=== PATIENT | female | born 1970 | race Caucasian/White ===

== ENCOUNTER 2017-02-24 14:43 | Emergency (ER) | payer BC ==
[2017-02-24] MEDS ORDERED: Morphine INJ* 4 MG/ML 1 ML SYRINGE IM ONE (15:15)
[2017-02-24 15:17] VITALS: BP 134/84
--- NOTE | 2017-02-24 15:39 | UC ---
Lower Extremity/Ankle HPI - HPI Summary HPI Summary: Pt c/o right lower anterior lateral ankle and foot pain. Pt denies injury or trauma, recent travel or history of clotting disorder. pt does report that she was walking 2 days prior for 6 hours 3 of which she was wearing flip flops and 3 with sneakers. pt states that pain radiates to right foot. - History of Current Complaint Chief Complaint: UCLowerExtremity Stated Complaint: RIGHT LEG PAIN Time Seen by Provider: 02/24/17 14:45 Hx Obtained From: Patient Hx Last Menstrual Period: 2006 ?: No Onset/Duration: Sudden Onset, Lasting Days, Still Present, Worse Since - onset Severity Initially: Mild Severity Currently: Mild Aggravating Factor(s): Standing, Ambulation Alleviating Factor(s): Rest Able to Bear Weight: Yes - Risk Factors Gout Risk Factors: Age Over 40 DVT Risk Factors: Negative Septic Arthritis Risk Factor: Negative - Allergies/Home Medications Allergies/Adverse Reactions: Allergies Allergy/AdvReac Type Severity Reaction Status Date / Time CI Pigment Blue 63 Allergy Severe PSUDEO Verified 02/24/17 15:17 [From Cymbalta] SEIZURES Duloxetine [From Cymbalta] Allergy Severe PSUDEO Verified 02/24/17 15:17 SEIZURES Gabapentin Allergy Severe SYNCOPE Verified 02/24/17 15:17 Pregabalin [From Lyrica] Allergy Severe See Comment Verified 02/24/17 15:17 PMH/Surg Hx/FS Hx/Imm Hx Previously Healthy: Yes Cardiovascular History: Cardiac Disease - Surgical History Surgical History: Yes Surgery Procedure, Year, and Place: 1988 93 96 3 C SECTIONS [facility]. 2006 HYSTERECTOMY [employer]. [address] [facility] [place] EXPLORATORY ABDOMINAL LAPAROSOPIC,. 04/14/13- REMOV[place] PLATE LEFT ARM, [facility] [place] 2009 FUSION C 4 -5 5-6 [facility] [place]2012 LEFT UL[place] SH[place] WITH ORIF, [facility] [place] [address] [facility] [place] BUNIONECTOMY-RIGHT 1ST [facility] - Family History Known Family History: Positive: Hypertension - Social History Occupation: Employed Full-time Lives: With Family Alcohol Use: Rare Substance Use Type: None Smoking Status (MU): Never Smoked Tobacco Have You Smoked in the Last Year: No - Immunization History Most Recent Influenza Vaccination: 2012 Review of Systems Constitutional: Negative Skin: Negative Eyes: Negative ENT: Negative Respiratory: Negative Cardiovascular: Negative Gastrointestinal: Negative Genitourinary: Negative Motor: Decreased ROM Neurovascular: Negative Musculoskeletal: Myalgia - right lower extremity Neurological: Negative Psychological: Negative All Other Systems Reviewed And Are Negative: Yes Physical Exam Triage Information Reviewed: Yes Appearance: Well-Appearing Vital Signs: Initial Vital Signs Temp 99.9 F 02/24/17 15:08 Pulse 78 02/24/17 15:08 Resp 16 02/24/17 15:08 BP 134/84 02/24/17 15:08 Pulse Ox 99 02/24/17 15:08 Vital Signs Reviewed: Yes Eye Exam: Normal ENT Exam: Normal Neck exam: Normal Respiratory Exam: Normal Cardiovascular Exam: Normal Cardiovascular: Positive: Other: - positive pedal pulses, Musculoskeletal Exam: Other Musculoskeletal: Positive: Other: - tenderness right medial lower ankle. Neurological Exam: Normal Psychological Exam: Normal Skin Exam: Normal, Other - warm, brisk capillary refill, no red streaking, no edema Lower Extremity Course/Dx - Differential Dx/Diagnosis Differential Diagnosis/HQI/PQRI: DVT, Tendonitis Provider Diagnoses: tendonitis right lower extremity Discharge - Discharge Plan Condition: Stable Disposition: HOME Patient Education Materials: Tendinitis (ED), RICE Therapy (ED) Referrals: Igor Lombardo MD [Primary Care Provider] - If Needed (Please followup with your PCP or return to clinic as needed. ) Additional Instructions: Please follow up with your PCP or return to clinic as needed. If your symptoms worsen please seek care as soon as possible.
== END 2017-02-24 15:47 | disposition home or self-care (01) ==
LOC: UCCORT 14:43
DX: M65.061 Abscess of tendon sheath, right lower leg (principal)
CPT/HCPCS: 99211; G0463; J2270

== ENCOUNTER 2017-07-08 14:47 | Emergency (ER) | payer BC ==
--- OUTSIDE RECORDS SUMMARY | 2017-07-08 15:05 | XMS REPORT ---
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 Active Onset: 02/28/2014 Chest pain Igor Lombardo M.D. Active Onset: 03/12/2013 Headache Igor Lombardo M.D. Active Onset: 09/18/2012 Benign essential hypertension Igor Lombardo M.D. Active Onset: 06/22/2012 Disorder of lip Igor Lombardo M.D. Active Onset: 12/03/2011 Hand joint pain Igor Lombardo M.D. Active Onset: 09/21/2011 Arthropathy of joint of hand Igor Lombardo M.D. Active Onset: 09/16/2011 Edema Igor Lombardo M.D. Active Onset: 09/04/2011 Myalgia & Myositis Unspec Igor Lombardo M.D. Active Onset: 09/04/2011 Chronic pain syndrome Igor Lombardo M.D. Active Family History Date Family Member(s) Problem(s) Comments General Diabetes Mellitus, II father, and PGM. Father Diabetes, age 62 CVA Mother Lung CA, ex-smoker. Number of Children 3 children, 2 girls, one boy, all in good health. 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 Allergies, Adverse Reactions, Alerts Date Description Reaction Status Severity Comments 09/16/2011 Cymbalta active pseudo seizures 09/16/2011 Lyrica active pseudo seizures 05/28/2010 Nkma inactive 09/04/2011 NKDA inactive Medications Medication Date Status Form Strength Qnty SIG Indications Ordering Provider Prednisone 07/03/ Active Tablets 20mg 8tabs take 2 by J20.9 Yazmin C. 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 may take 2 as one dose at bedtime. Ventolin HFA 07/03/ Active Aerosol 108(90Bas 18gm take 1-2 J20.9 Yazmin CShanika 2018 e) puffs inhaled Abhi, mcg/Act every 4 hours GOGGLES ASSEMBLER as needed for wheezing or tightness in the chest Benzonatate 07/03/ Active Capsules 200mg 30cap take one by J20.9 Yazmin C. 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 2014 Fluoxetine HCL 05/07/ Hx Capsules 10mg 60cap 1 by mouth Igor Smith 2012 - s twice a day Grupo, MShanikaD. 2016 Elavil 03/12/ Hx 10 30uni use qhs Igor Smith 2012 - ts Grupo, M.D. 2013 Vicodin 03/12/ Hx Tablets 5-300mg 50tab 1 po q4hrs Igor Smith 2012 - s prn dt call Grupo, M.D. 2013 Back Brace 02/15/ Hx needs new Igor Smith 2012 - back brace Grupo, 11/10/ M.DShanika 2014 fibromyalgia ne Doxycycline 06/22/ Hx Capsules 100mg 16cap use 1bid Igor Smith Hyclate 2011 Grupo, M.D. 2012 Triamterene/Hy 04/17/ Hx Capsules 37.5-25mg 30cap take one Igor Smith drochlorothiaz 2011 capsule by nia Lombardo 07/03/ mouth every M.D. 2018 day Prednisone 04/06/ Hx Tablets 20mg 18tab 3 x 3 days Igor Smith 2011 s 2 x 3 days 1 Grupo, 09/18/ x 3 days M.D. 2013 Physical 04/03/ Hx needs PT to [facility] 2012 - her hand Grupo, M.D. 2013 Prednisone 12/25/ Hx Tablets 5mg 9tabs 2 tabs x 3 Lupe 2011 - , then 1 Elijah, 04/03/ tabs x 3 Afnp-C 2011 days, Prednisone 11/21/ Hx Tablets 5mg 9tabs 2 tabs x 3 Lupe 2011 - , then 1 Elijah, 12/02/ tabs x 3 Afnp-C 2011 days, Dyazide 09/15/ Hx Capsules 37.5-25mg 30cap Take One A Lupe 2011 Day Elijah, 09/18/ Afnp-C 2012 Ambien 09/03/ Hx Tablets 10mg 30tab 1 po q hs prn Igor Smith 2011 Gabrielle s Grupo, 09/15/ MGary 2011 Miralax 06/25/ Hx Powder [id number] 510gm 06/24 teaspoon 564.09 Addis JavierShanika 2010 - in 8 oz water Thanh, 09/03/ at night. MGary 2011 Lansoprazole // Hx Capsules 30mg 1 po qd Unknown 0000 - DR 2011 Estropipate 00/ Hx Tablets 1.5mg 30tab 1 PO qd Mily Bolanos 0000 - s [place] 05/15/ , Manuela 2014 Docusate / Hx Capsules 240mg 1 PO bid Unknown Calcium - 2011 Limbrel / Hx Capsules 500mg 1 po bid Unknown 0000 - 2011 Hyomax-SR / Hx Tablets ER 0.375mg 1 PO bid Unknown 0000 - 12HR 2011 Vicodin / Hx Tablets 5-500mg 1 to 2 po Unknown 0000 - every six 09/03/ hours prn. 2011 Omeprazole 00/ Hx Tablets DR 20mg 30tab 1 by mouth Igor farris every day Grupo 10/10/ MGary 2016 [place] 3-6-9 /00/ Hx Capsules Unknown Complex - 2011 Librax 00/ Hx Capsules 2.5-5mg 120ca take 1 Unknown 0000 - ps capsule 3-4 09/18/ times a day 2012 as needed Fluoxetine / Hx Capsules 10mg 60cap 1 po bid Igor Smith 0000 Gabrielle s Grupo, 05/16/ MGary 2014 Prednisone /00/ Hx Tablets 60mg 4tabs 1 po qd x 4 Unknown 0000 - days 2011 Cipro /00/ Hx Tablets 500mg 1 po bid x 10 Unknown 0000 - days 2011 Linzess /00/ Hx Capsules 145mcg Unknown - 2016 Probiotic /00/ Hx Capsules Unknown 0000 - 2012 Premarin /00/ Hx Tablets 1 by mouth Unknown 0000 - every day 2016 Medications Administered in Office Medication Date Status Form Strength Qnty SIG Indications Ordering Provider Injection 09/20/ Injection Igor Smith Subcutaneous Or Roby James M.D. Immunizations CPT Code Status Date Vaccine Lot # [id number] Given 05/15/2015 Tdap Tetanus, W Pertussis [id number] Vital Signs Date Vital Result Comment 07/03/2017 BP Systolic 132 mmHg BP Diastolic 86 mmHg Heart Rate 84 /min Body Temperature 98.1 F Respiratory Rate 16 /min Weight 181.25 lb 02/21/2017 BP Systolic 124 mmHg BP Diastolic 80 mmHg Heart Rate 72 /min Body Temperature 99.0 F Respiratory Rate 16 /min Weight 176.38 lb 05/15/2015 BP Systolic 128 mmHg BP Diastolic 80 mmHg Heart Rate 72 /min Body Temperature 99.2 F Respiratory Rate 16 /min Weight 168.25 lb 11/10/2014 BP Systolic 148 mmHg BP Diastolic 90 mmHg Heart Rate 80 /min Body Temperature 99.0 F Height 63.25 inches 5'3.25" 02/28/2014 BP Systolic 122 mmHg BP Diastolic 80 mmHg Heart Rate 70 /min Body Temperature 98.8 F Respiratory Rate 18 /min Height 63.25 inches 5'3.25" Weight 176.00 lb BMI (Body Mass Index) 30.9 kg/m2 08/20/2013 BP Systolic 140 mmHg BP Diastolic 84 mmHg Heart Rate 66 /min Body Temperature 99.1 F Respiratory Rate 18 /min Height 63.25 inches 5'3.25" Weight 170.00 lb BMI (Body Mass Index) 29.9 kg/m2 03/12/2013 BP Systolic 144 mmHg BP Diastolic 106 mmHg Heart Rate 84 /min Body Temperature 98.7 F Respiratory Rate 16 /min Height 63.25 inches 5'3.25" Weight 163.50 lb BMI (Body Mass Index) 28.7 kg/m2 12/28/2012 BP Systolic 122 mmHg BP Diastolic 68 mmHg Heart Rate 80 /min Body Temperature 97.4 F Respiratory Rate 18 /min Height 63.25 inches 5'3.25" Weight 162.00 lb BMI (Body Mass Index) 28.5 kg/m2 09/18/2012 BP Systolic 128 mmHg BP Diastolic 82 mmHg Heart Rate 88 /min Body Temperature 98.3 F Respiratory Rate 16 /min Height 63.25 inches 5'3.25" Weight 158.00 lb BMI (Body Mass Index) 27.8 kg/m2 06/22/2012 BP Systolic 110 mmHg BP Diastolic 80 mmHg Heart Rate 88 /min Body Temperature 98.9 F Height 63.5 inches 5'3.50" Weight 158.00 lb BMI (Body Mass Index) 27.5 kg/m2 04/03/2012 BP Systolic 110 mmHg BP Diastolic 90 mmHg Heart Rate 70 /min Body Temperature 99.1 F Height 63.5 inches 5'3.50" Weight 156.00 lb BMI (Body Mass Index) 27.2 kg/m2 12/03/2011 BP Systolic 102 mmHg BP Diastolic 70 mmHg Heart Rate 68 /min Height 63.5 inches 5'3.50" Weight 151.00 lb BMI (Body Mass Index) 26.3 kg/m2 11/22/2011 BP Systolic 122 mmHg BP Diastolic 82 mmHg Heart Rate 78 /min Body Temperature 98.4 F Height 63.5 inches 5'3.50" Weight 150.00 lb BMI (Body Mass Index) 26.2 kg/m2 11/19/2011 BP Systolic 138 mmHg BP Diastolic 94 mmHg Heart Rate 66 /min Height 63.5 inches 5'3.50" Weight 150.00 lb BMI (Body Mass Index) 26.2 kg/m2 10/01/2011 BP Systolic 128 mmHg BP Diastolic 92 mmHg Heart Rate 72 /min Body Temperature 98.6 F Height 63.5 inches 5'3.50" Weight 152.00 lb BMI (Body Mass Index) 26.5 kg/m2 09/21/2011 BP Systolic 140 mmHg BP Diastolic 98 mmHg Heart Rate 66 /min Body Temperature 97.5 F Height 63.5 inches 5'3.50" Weight 150.00 lb BMI (Body Mass Index) 26.2 kg/m2 09/16/2011 BP Systolic 130 mmHg BP Diastolic 92 mmHg Heart Rate 72 /min Body Temperature 98.9 F Height 63.5 inches 5'3.50" Weight 156.00 lb BMI (Body Mass Index) 27.2 kg/m2 09/04/2011 BP Systolic 122 mmHg BP Diastolic 80 mmHg Heart Rate 72 /min Respiratory Rate 14 /min Height 63.5 inches 5'3.50" Weight 145.00 lb BMI (Body Mass Index) 25.3 kg/m2 06/25/2010 BP Systolic 100 mmHg BP Diastolic 80 mmHg Heart Rate 76 /min Body Temperature 99.4 F Height 63.5 inches 5'3.50" Weight 161.00 lb BMI (Body Mass Index) 28.1 kg/m2 05/28/2010 BP Systolic 120 mmHg BP Diastolic 88 mmHg Heart Rate 80 /min Body Temperature 99.0 F Height 63.5 inches 5'3.50" Weight 162.00 lb BMI (Body Mass Index) 28.2 kg/m2 Results Test Date Test Result H/L Range Note Complete Blood Count 02/21/2017 WBC 5.9 x10^3/UL 3.6-9.6 RBC 4.83 x10^6/UL 3.90-5.70 HGB 14.2 g/dL 12.1-17.2 HCT 42 % 36-50 MCV 88.0 fL 82.2-97.4 MCH 29.4 pg 27.6-33.3 MCHC 33.6 g/dL 33.0-35.5 RDW 13.8 % High 11.6-13.7 PLT 385 x10^3/UL 150-400 MPV 6.8 fL Low 7.4-10.4 Gran # 3.9 x10^3/UL 1.5-7.2 Lymph# 1.7 x10^3/UL 0.7-4.9 [place]# 0.3 x10^3/UL 0.1-0.9 Gran % 65.6 % 42.2-75.2 Lymph % 28.9 % 20.5-51.1 [place]% 5.5 % 1.7-9.3 Comprehensive Metabolic Prof 02/21/2017 Sodium 142 mEq/L 134-149 Potassium 4.5 mEq/L 3.6-5.5 Chloride 102 mEq/L 94-112 Carbon Dioxide 26 mEq/L 21-32 Glucose 98 mg/dL 70-105 BUN 13 mg/dL 6-26 Creatinine 0.8 mg/dL 0.6-1.4 BUN/Creat Ratio 16.3 CALC 8.0-36.0 Calcium 9.3 mg/dL 8.6-10.2 Total Protein 7.8 g/dL 6.4-8.3 Albumin 4.8 g/dL 3.8-5.5 Globulin 3.0 g/dL 2.0-4.8 A/G Ratio 1.6 CALC 0.6-2.3 Alk. Phosphatase 82 U/L 30-110 Alt (SGPT) 13 U/L 7-35 Ast (Sgot) 15 U/L 5-34 Total Bilirubin 0.7 mg/dL 0.2-1.3 GFR Non- >60 ml/min/1.73m^ >=60 GFR >60 ml/min/1.73m^ >=60 Laboratory test finding 02/21/2017 Free T4 0.92 ng/dL 0.75-1.54 TSH 2.93 mIU/L 0.50-6.00 Laboratory test finding 02/21/2017 Hemoglobin A1c (Fma) 5.7 % % 4.1-5.7 Lyme AB/Western Blot 02/21/2017 Lyme IgG/IgM Ab <0.91 ISR 0.00-0.90 1 , 2 Reflex Lyme Disease Ab, Quant, IgM <0.80 index 0.00-0.79 1, 3 Laboratory test finding 04/26/2016 Lyme Disease Serology Negative Negative 4 Comprehensive Metabolic Prof 05/19/2015 Sodium 142 mEq/L 134-149 Potassium 4.7 mEq/L 3.6-5.5 Chloride 102 mEq/L 94-112 Carbon Dioxide 27 mEq/L 21-32 Glucose 121 mg/dL High 70-105 5 BUN 16 mg/dL 6-26 Creatinine 0.8 mg/dL 0.6-1.4 BUN/Creat Ratio 20.0 CALC 8.0-36.0 Calcium 10.5 mg/dL High 8.6-10.2 6 Total Protein 8.0 g/dL 6.4-8.3 Albumin 4.9 g/dL 3.8-5.5 Globulin 3.1 g/dL 2.0-4.8 A/G Ratio 1.6 CALC 0.6-2.3 Alk. Phosphatase 70 U/L 30-110 Alt (SGPT) 11 U/L 7-35 Ast (Sgot) 16 U/L 5-34 Total Bilirubin 0.8 mg/dL 0.2-1.3 GFR Non- >60 ml/min/1.73m^ >=60 GFR >60 ml/min/1.73m^ >=60 CBC Electronic (a) 05/19/2015 WBC 5.9 3.6-9.6 RBC 4.75 3.90-5.70 Hemoglobin (Fma/CMC/CTX) 13.8 g/dL 12.1 - 17.2 Hematocrit (Fma/CMC/CTX) 43.1 % 36.1 - 50.3 Platelets 327 10^3/ul 150-400 Lymph% 29.5 % 17.0-48.0 Mixed% 3.1 Neutrophils % 67.4 Mean Corpuscular Vol 91 82.2-97.4 Mean Corpuscular Hemoglobin 29.2 27.6-33.3 Mean Corpuscular Hemo Concen 32.1 32.0-36.0 RDW 13.4 11.6-13.7 Mean Platelet Volume 6.6 5.5-11.0 Ua - Micro ([facility]) 11/10/2014 Appearance CLEAR Color YELLOW Glucose, Urine (Fma/CMC/CTX) NEG Bilirubin NEG Ketones NEG SP Grav 1.005 Blood SMALL PH 5.5 Protein NEG Urobil 0.2 Nitrite NEG Leukocytes (a/CMC/Centrex) NEG WBC ([facility],Centrex) 0-1 RBC 5-7 Epith RARE /Lpf Bacteria 1+ /Hpf Throat-Beta Strept 08/09/2014 Throat Beta Strep (SEE NOTE) 7 Culture PTH Intact W/Calcim (CX) 03/04/2014 Calcium 10.8 mg/dL High 8.4-10.4 8 Intact PTH 38.8 pg/mL 10.0-73.0 8 Calcium 10.8 mg/dL High 8.4-10.4 8 CBC Electronic ([facility]) 02/28/2014 WBC 8.5 3.6-9.6 RBC 5.13 3.90-5.70 Hemoglobin (Fma/CMC/CTX) 15.1 g/dL 12.1 - 17.2 Hematocrit (Fma/CMC/CTX) 44.7 % 36.1 - 50.3 Platelets 329 10^3/ul 150-400 Lymph% 23.3 % 17.0-48.0 Mixed% 4.4 Neutrophils % 72.3 Mean Corpuscular Vol 87 82.2-97.4 Mean Corpuscular Hemoglobin 29.5 27.6-33.3 Mean Corpuscular Hemo Concen 33.9 32.0-36.0 RDW 13.8 High 11.6-13.7 Mean Platelet Volume 6.9 5.5-11.0 Comprehensive Metabolic Prof 02/28/2014 Sodium 142 mEq/L 134-149 Potassium 4.2 mEq/L 3.6-5.5 Chloride 98 mEq/L 94-112 Carbon Dioxide 26 mEq/L 21-32 Glucose 102 mg/dL 70-105 BUN 22 mg/dL 6-26 Creatinine 1.0 mg/dL 0.6-1.4 BUN/Creat Ratio 22.0 CALC 8.0-36.0 Calcium 10.5 mg/dL High 8.6-10.2 9 Total Protein 9.1 g/dL High 6.3-8.1 10 Albumin 5.2 g/dL 3.8-5.5 Globulin 4.8 g/dL 2.0-4.8 A/G Ratio 1.3 CALC 0.6-2.3 Alk. Phosphatase 94 U/L 30-110 Alt (SGPT) 18 U/L 7-35 Ast (Sgot) 26 U/L 5-34 Total Bilirubin 0.7 mg/dL 0.2-1.3 Laboratory test 02/28/2014 Sed Rate (Fma/CMC/Centrex) 10 mm finding Laboratory test 02/28/2014 TSH 2.04 mIU/L 0.50-6.00 finding Surgical Pathology 10/21/2013 S RUN DATE: 10/25/ <SEE NOTE> CBC Electronic (a) 12/28/2012 WBC 5.8 3.6-9.6 RBC 4.92 3.90-5.70 Hemoglobin (Fma/CMC/CTX) 13.9 g/dL 12.1 - 17.2 Hematocrit (Fma/CMC/CTX) 42.9 % 36.1 - 50.3 Platelets 367 10^3/ul 150-400 Lymph% 27.8 20.5-51.1 Mixed% 4.0 Neutrophils % 68.2 Mean Corpuscular Vol 87 82.2-97.4 Mean Corpuscular Hemoglobin 28.3 27.6-33.3 Mean Corpuscular Hemo Concen 32.4 32.0-36.0 RDW 11.8 11.6-13.7 Mean Platelet Volume 7.1 6.5-11.0 Comprehensive Metabolic Prof 12/28/2012 Albumin 5.0 g/dL 3.8-5.5 Alk. Phos. 74 U/L 30-110 Alt (SGPT) 14 U/L 7-35 Ast (Sgot) 21 U/L 5-34 BUN 20 mg/dL 6-26 Calcium 10.7 mg/dL High 8.6-10.2 12 Chloride 100 mEq/L 94-112 Creatinine 0.9 mg/dL 0.6-1.4 Carbon Dioxide 24 mEq/L 21-32 Glucose 95 mg/dL 70-105 Sodium 138 mEq/L 134-149 Total Bilirubin 0.6 mg/dL 0.2-1.3 Total Protein 8.0 g/dL 6.3-8.1 Potassium 4.8 mEq/L 3.6-5.5 Globulin 3.0 g/dL 2.0-4.8 A/G Ratio 1.7 Calc 0.6-2.3 BUN/Creat Ratio 21.1 Calc 8.0-36.0 Laboratory test finding 12/28/2012 TSH 1.99 mIU/L 0.50-6.00 Lipid Profile 12/28/2012 Cholesterol 270 mg/dL High 120-200 13 HDL 67 mg/dL 30-85 Triglycerides 152 mg/dL 30-200 HDL Risk Factor 4.0 CALC 0.0-4.4 LDL (Calculated) 172 CALC High 0-129 VLDL (Calculated) 30 mg/dL 0-50 CBC Auto Diff 12/19/2011 White Blood Count 7.1 CUMM 4.8-10.8 Red Cell Count 4.50 CUMM 4.2-5.4 Hemoglobin 13.4 g/dL 12.0-16.0 Hematocrit 39 % 35-47 Mean Corpuscular Volume 86 um3 79-97 Mean Corpuscular Hemoglob 30 pg 27-31 Mean Corpuscular HGB Cone 35 g/dL 32-36 Redcell Distribution WDTH 13 % 10.5-15 Platelet Count 304 CUMM 150-450 Mean Platelet Volume 8.6 um3 7.4-10.4 Gran % 68.8 % 38-83 Lymph % 22.2 % Low 25-47 Mononuclear % 6.0 % 1-9 Eosinophil % 2.6 % 0-6 Basophil % 0.4 % 0-2 Abs Lymphs 1.6 1.0-4.8 Abs Mononuclear 0.4 0-0.8 Absolute Neutrophil Count 4.9 1.5-7.7 Abs Eosinophils 0.2 0-0.6 Abs Basophils 0 0-0.2 Comp Metabolic Panel 12/19/2011 Sodium 135 mmol/L 135-145 Potassium 3.7 mmol/L 3.5-5.0 Chloride 103 mmol/L 101-111 Co2 (Carbon Dioxide) 26.0 mmol/L 22-32 Anion Gap 6.0 mmol/L 2-11 14 Glucose 104 mg/dL High 70-100 BUN 16 mg/dL 6-24 Creatinine 0.8 mg/dL 0.50-1.40 One Over Creatinine 1.25 BUN/Creatinine Ratio 20.0 8-20 Calcium 9.6 mg/dL 8.1-9.9 Total Protein 6.9 GM/DL 6.2-8.1 Albumin 4.3 GM/DL 3.6-5.4 Globulin 2.6 GM/DL 2-4 Albumin/Globulin Ratio 1.7 1-3 Bilirubin Total 0.8 mg/dL 0.4-1.5 15 Alkaline Phosphatase 65 U/L 30-110 Alt (SGPT) 13 U/L Low 14-54 Ast (Sgot) 21 U/L 12-42 eGFR Non- 79.0 > 60 eGFR 101.7 > 60 16 Laboratory test finding 12/19/2011 Prealbumin 26.7 mg/dL 18-38 C Reactive Protein 1.4 mg/dL High Less Than 0.5 Hemoglobin A1c 5.8 % Less Than 6.0 17 Vitamin D, 25 Hydroxy 12/19/2011 25-Hydroxy Vitamin D2 <4.0 ng/mL () 25-Hydroxy Vitamin D3 36 ng/mL () 25-Hydroxy Vitamin D Total 36 ng/mL () 18 Laboratory test 12/19/2011 Tissue Culture <SEE 19 finding Sensitivity NOTE> Fungal Cult Other Sources <SEE NOTE> 20 Laboratory test finding 11/22/2011 Uric Acid 4.5 mg/dL 2.5-9.2 Laboratory test finding 11/22/2011 Sed Rate (Fma/CMC/Centrex) 16 mm Basic Metabolic Profile 09/16/2011 BUN 25 mg/dL 6-26 Calcium 8.9 mg/dL 8.6-10.2 Chloride 101 mEq/L 94-112 Creatinine 0.8 mg/dL 0.6-1.4 Carbon Dioxide 28 mEq/L 21-32 Glucose 105 mg/dL 70-105 Sodium 139 mEq/L 134-149 Potassium 4.0 mEq/L 3.6-5.5 BUN/Creat Ratio 31.5 Calc 8.0-36.0 Laboratory test finding 09/16/2011 Antinuclear Abs, Ifa Negative 21 Rheumatoid Arth Factor 10.3 IU/mL 0.0-13.9 Laboratory test finding 09/16/2011 Sed Rate (Fma/CMC/Centrex) 16mm Comp Metabolic Panel 05/24/2010 Sodium 137 mmol/L 135-145 Potassium 4.2 mmol/L 3.5-5.0 Chloride 103 mmol/L 101-111 Co2 (Carbon Dioxide) 27.0 mmol/L 22-32 Anion Gap 7.0 mmol/L 2-11 22 Glucose 95 mg/dL 70-100 23 BUN 15 mg/dL 6-24 Creatinine 0.77 mg/dL 0.50-1.40 One Over Creatinine 1.20 BUN/Creatinine Ratio 19.5 8-20 Calcium 9.8 mg/dL 8.1-9.9 Total Protein 7.7 GM/DL 6.2-8.1 Albumin 4.4 GM/DL 3.6-5.4 Globulin 3.3 GM/DL 2-4 Albumin/Globulin Ratio 1.3 1-3 Bilirubin Total 0.8 mg/dL 0.4-1.5 24 Alkaline Phosphatase 72 U/L 30-110 Alt (SGPT) 13 U/L Low 14-54 Ast (Sgot) 20 U/L 12-42 eGFR Non- 88.7 > 60 eGFR 107.3 > 60 25 Urinalysis W/Microscopic 05/24/2010 Ua Color YELLOW Yellow Appearance-Urine CLEAR Clear Specific [place]-Ur 1.012 1.010-1.030 Esterase-Urine NEGATIVE Negative Nitrite NEGATIVE Negative Vtcquyncevhu-Gp-GEJ NEGATIVE Negative Protein-Urine NEGATIVE Negative PH-Urine 7.0 5-9 Blood-Urine 1+ Negative Ketones-Urine NEGATIVE Negative Bilirubin-Ur NEGATIVE Negative Glucose-Urine NEGATIVE Negative RBC-Urine 5-10 0-2 Epith Cells-Ur RARE None Bacteria-Urine TRACE None Laboratory test finding 05/24/2010 Erythrocyte Sed Rate 8 MM/HR 0-15 Creatinine Clearance 05/24/2010 Creatinine Random Urine 141.22 mg/dL Creat Clearance 92 mL/min 80-125 Hours Of Collection 24 HR 24- Urine Volume Measurement 725 ML Total Protein 24HR Urine 05/24/2010 Total Protein Random Urine 5 mg/dL Urine Total Protein/24HR 36 MG/24HR Low 50-100 1 1SST 2 Negative <0.91 Equivocal 0.91 - 1.09 Positive >1.09 3 Negative <0.80 Equivocal 0.80 - 1.19 Positive >1.19 IgM levels may peak at 3-6 weeks post infection, then gradually decline. 4 Serologic response to B. burgdorferi infection is not detected, but cannot rule out early infection during which low or undetectable antibody levels to B. burgdorferi may be present. If clinically indicated, a new serum specimen should be submitted in 7-14 days. Test Performed by: [address] [address] [place] Pilot: Aubrey De La Cruz II, M.D., Ph.D. 5 NON-FASTING 6 consistent w/ previous results 7 RUN DATE: 08/11/14 [facility] LAB LIVE PAGE 1 RUN TIME: [address] [place] [id number] Specimen Inquiry Name: NIDIA YORK : [address]: Chantell Lutz MD Acct: [id number] Unit: [id number] AGE: 43 Location: [facility] Re08/09/14 SEX: F Status: DEP ER SPEC: [id number] TENZIN: 08/09/14-[address] [facility] [address]: Jackie Guzman NP REQ: [id number] RECD: 08/09/14 STATUS: TOO BRONSON DR: Chantell Lombardo MD _ SOURCE: THROAT SPDESC: ORDERED: Throat Beta Str Procedure Result Verified Site Throat Beta Strep Culture Final 08/11/14- 825 ML Negative For Group A Beta Streptococcus END OF REPORT * ML=Testing performed at Main Lab DEPARTMENT OF PATHOLOGY, [address] [place] [address] Rodolfo Carpenter M.D. Director [facility] # [id number] 1 pour off tube refrig 9 RESULTS VERIFIED BY REPEAT ANALYSIS 10 RESULTS VERIFIED BY REPEAT ANALYSIS 11 RUN DATE: 10/25/13 [facility] LAB LIVE PAGE 1 RUN TIME: [address] [place] [address] Specimen Inquiry Name: NIDIA YORK : [address]: Lino Noyola MD Acct: [id number] Unit: [id number] AGE: 42 Location: [facility] Re10/21/13 SEX: F Status: [facility] SPEC: [id number] TENZIN: 10/21/13- SUBM DR: Lino Noyola MD REQ: [id number] RECD: 10/21/131629 STATUS: FANTASMA BRONSON DR: Rowan Lombardo MD _ ORDERED: LEVEL IV FINAL DIAGNOSIS Skin, left breast, excision: A. Compound melanocytic nevus with mild architectural disorder and mild cytologic atypia. B. Deep, tip, and lateral margins are clear by at least 3 mm. PRE-OPERATIVE DIAGNOSIS Irregular pigmented lesion left breast, suture twelve o'clock superior apex margin. GROSS DESCRIPTION The specimen is received in formalin labeled Nidia York, Excision Irregular Pigmented Skin Lesion Left Breast Suture=Twelve O'clock Superior Mcrae [place] Margin and consists of a 3.0 x 0.8 cm. danielle-cagle, wrinkled skin ellipse excised to a depth of 0.4 cm. There is a suture attached to one long axis which designates twelve o'clock. There is a central 0.8 x 0.5 cm. brown area. The specimen is inked as follows: nine o'clock half - black, three o'clock half - blue, and twelve o'clock tip green, serially sectioned from twelve o'clock to six o'clock and entirely submitted in cassettes A through C to include ellipse ends in cassette C. Signed (signature on file) Rodolfo Carpenter MD [id number] END OF REPORT * ML=Testing performed at Main Lab DEPARTMENT OF PATHOLOGY, [address] [place] [address] Rodolfo Carpenter M.D. Director [facility] Permit #[id number] RESULT KASSANDRA'D 13 RESULT KASSANDRA'D 14 Anion gap measurement may be of limited value in the presence of any alkalosis, especially in a combined acid base disorder. . 15 A metabolite of Naproxen, O-desmethylnaproxen, has been shown to interfere with the Jendrassik-Ambrose method for measuring total bilirubin. Samples from patients who have taken Naproxen have shown spurious elevation in total bilirubin levels. 16 Because ethnic data is not always readily available, this report includes an eGFR for both -Americans and non- Americans. The National Kidney Disease Education Program (NKDEP) does not endorse the use of the MDRD equation for patients that are not between the ages of 18 and 70, are , have extremes of body size, muscle mass, or nutritional status, or are non- or non-. According to the National Kidney Foundation, irrespective of diagnosis, the stage of the disease is based on the level of kidney function: Stage Description GFR(mL/min/1.73 m(2)) 1 Kidney damage with normal or decreased GFR 90 2 Kidney damage with mild decrease in GFR 60-89 3 Moderate decrease in GFR 30-59 4 Severe decrease in GFR 15-29 5 Kidney failure <15 (or dialysis) 17 THERAPEUTIC TARGET FOR THE TREATMENT OF DIABETES MELLITUS PATIENTS IS <7% HBA1C, AND IN SELECTIVE PATIENTS <6.0%. PLEASE REFER TO [employer] DIABETIC CARE GUIDELINES FOR FURTHER INFORMATION. 18 -- REFERENCE VALUE -- 25-HYDROXY D TOTAL (D2+D3) Optimum levels in the normal population are 25-80 Test Performed by: [address] [address] State Pilot: Julius Baumann III, M.D. 19 RUN DATE: 12/22/11 [facility] NMI LIVE PAGE 1 RUN TIME: 952 Specimen Inquiry RUN USER: INTERFACE [id number] Status: REG REF Re12/19/11 Age/Sex: 41/F Unit#: [id number] Location: [facility] : 70 SPEC #: [id number] TENZIN: 12/19/11 STATUS: TOO REQ #: [id number] RECD: 12/19/[address]: Brigette Arrington MD SOURCE: TISSUE ENTR: 12/19/[address]: Igor Lombardo MD SPDESC: HAND,LEFT ORDERED: TISSUE CS/SMEAR ACT WKST: B 12/22/11 #1 Procedure Result Verified Site > CULTURE SENSITIVITY Final -0952 ML NORMAL CUTANEOUS MARY LOU TO INCLUDE: FEW COAG NEG STAPHYLOCOCCUS - 2 VARIANTS FEW DIPHTHEROIDS ONE COLONY GRAM NEG BACILLI FEW MICROCOCCUS/KOCURIA SPECIES > GRAM STAIN SMEAR Final -0752 ML POLYS NONE SMEAR: NO ORGANISMS SEEN ML - [facility] State Permit #[id number] [address] [place] [address] DEPARTMENT OF PATHOLOGY, [address] [place] [address] [facility] Permit #[id number] Rodolfo Carpenter M.D. Director Dariel Goff M.D. Ent Physician 20 RUN DATE: 01/06/12 [facility] NMI LIVE PAGE 1 RUN TIME: 1507 Specimen Inquiry RUN USER: INTERFACE Name: NIDIA YORK Accbrian#: [id number] Status: REG REF Re12/19/11 Age/Sex: 41/F Unit#: [id number] Location: WOUND : 70 SPEC #: [id number] TENZIN: 12/19/11 STATUS: COMP REQ #: [id number] RECD: 12/19/11140 [facility] DR: Murphy RAMIREZ,Brigette SOURCE: WOUND ENTR: 12/19/11-[address]: Grupo RAMIREZ,[facility]: HAND,LEFT ORDERED: FUNGAL CULT [facility] COMMENTS: COMMENTS: tissue culture COMMENTS: fungal hand swab ACT WKST: CHANG 01/06/12 #1 Procedure Result Verified Site > FUNGAL CULT OTHER SOURCES Final -1507 ML FINAL: NO GROWTH OF MYCOTIC ORGANISMS AFTER 3 WEEKS - [facility] Permit #[id number] [address] [place] [address] DEPARTMENT OF PATHOLOGY, [address] [address] [facility] Permit #[id number] Rodolfo Carpenter M.D. Director Dariel Goff M.D. Ent Physician 21 Negative <1:80 Borderline 1:80 Positive >1:80 22 Anion gap measurement may be of limited value in the presence of any alkalosis, especially in a combined acid base disorder. . 23 Note change in reference range as of 02/11/08. The change was based on recommendations from the [place] [employer]. 24 A metabolite of Naproxen, O-desmethylnaproxen, has been shown to interfere with the Jendrassik-Ambrose method for measuring total bilirubin. Samples from patients who have taken Naproxen have shown spurious elevation in total bilirubin levels. 25 Because ethnic data is not always readily available, this report includes an eGFR for both -Americans and non- Americans. The National Kidney Disease Education Program (NKDEP) does not endorse the use of the MDRD equation for patients that are not between the ages of 18 and 70, are , have extremes of body size, muscle mass, or nutritional status, or are non- or non-. According to the National Kidney Foundation, irrespective of diagnosis, the stage of the disease is based on the level of kidney function: Stage Description GFR(mL/min/1.73 m(2)) 1 Kidney damage with normal or decreased GFR 90 2 Kidney damage with mild decrease in GFR 60-89 3 Moderate decrease in GFR 30-59 4 Severe decrease in GFR 15-29 5 Kidney failure <15 (or dialysis) Procedures Date CPT Code Description Status 05/15/2015 75013 Electrocardiogram Complete Completed 02/28/2014 75630 Electrocardiogram Complete Completed 09/21/2011 59377 Injection Subcutaneous Or Intramuscular Completed 09/21/2011 59605 Inject, Tendon Origin/Insertion Completed Encounters Type Date Location Provider CPT E/M Dx Office Visit 02/21/2017 9:10a Main Office Igor Lombardo M.D. 01834 R51 R53.83 R73.9 Office Visit 05/15/2015 6:00p Main Office Addis Law M.D. 28142 M20.11 Z01.818 Z23 Office Visit 11/10/2014 11:00a Main Office Igor Lombardo M.D. 92674 724.5 Office Visit 02/28/2014 2:10p Main Office Igor Lombardo M.D. 49984 786.50 780.4 Office Visit 08/20/2013 1:40p Main Office Igor Lombardo M.D. 36035 729.1 Office Visit 03/12/2013 2:00p Main Office Igor Lombardo M.D. 41357 784.0 Office Visit 12/28/2012 8:00a Main Office Igor Lombardo M.D. 31911 401.1 729.1 Office Visit 09/18/2012 11:00a Main Office Igor Lombardo M.D. 47104 401.1 Office Visit 06/22/2012 11:10a Main Office Igor Lombardo M.D. 09176 528.5 Office Visit 04/03/2012 2:00p Main Office Igor Lombardo M.D. 29142 719.44 Office Visit 12/03/2011 4:00p [facility] Igor Lombardo M.D. 76167 719.44 Office Visit 11/22/2011 11:30a [facility] Office Lupe Nava, Sofiya-C 18155 719.44 Office Visit 11/19/2011 2:15p [facility] Office Tamiko Lyle, Sofiya-Radha 83317 719.44 Office Visit 10/01/2011 9:40a [facility] Igor Lombardo M.D. 24377 729.1 338.4 Office Visit 09/21/2011 10:00a Main Office Igor Lombardo M.D. 23074 719.64 Office Visit 09/16/2011 3:00p Main Office Igor Lombardo M.D. 25112 729.1 782.3 Office Visit 09/04/2011 7:20p Main Office Igor Lombardo M.D. 29453 338.4 729.1 Office Visit 06/25/2010 6:30p Main Office Addis Law M.D. 47509 338.4 564.09 Office Visit 05/28/2010 1:00p Main Office Lesa Payne [facility] 59504 724.5 Plan of Care 07/03/2017 - Yazmin Moe, NPJ20.9 Acute bronchitis, unspecifiedNew Medication:Prednisone 20 mgAcetaminophen-Codeine #3 300-30 mgVentolin HFA 108( 90 Base) mcg/ActBenzonatate 200 mgComments:Call FRANCIS if condition changes/ worsens in any wayIf there is new fever or trouble breathing please get seen again right away.
--- NOTE | 2017-07-08 16:24 | ED ---
Respiratory - HPI Summary HPI Summary: 46 yr old with complaint of cough for five weeks. She saw her PMD who put her on steroids, albuterol MDI and also cough pills. She states she is still no better. Her cough is non productive. She has had family members with influenza. She has no sinus pressure or drainage. - History of Current Complaint Chief Complaint: UCRespiratory Stated Complaint: COUGH,COLD SYMPTOMS Time Seen by Provider: 07/08/17 15:45 - Allergy/Home Medications Allergies/Adverse Reactions: Allergies Allergy/AdvReac Type Severity Reaction Status Date / Time CI Pigment Blue 63 Allergy Severe PSUDEO Verified 07/08/17 15:27 [From Cymbalta] SEIZURES Duloxetine [From Cymbalta] Allergy Severe PSUDEO Verified 07/08/17 15:27 SEIZURES Gabapentin Allergy Severe SYNCOPE Verified 07/08/17 15:27 Pregabalin [From Lyrica] Allergy Severe See Comment Verified 07/08/17 15:27 Home Medications: Home Medications Acetaminop/Codeine 30 MG TAB* [Tylenol/Codeine 30 MG TAB*] 1 - 2 tab PO BEDTIME PRN 07/08/17 [History Confirmed 07/08/17] Albuterol HFA INHALER* [Ventolin HFA Inhaler*] 1 - 2 puff INH Q4H PRN 07/08/17 [ History Confirmed 07/08/17] Benzonatate CAP* [Tessalon 100 MG CAP*] 100 - 200 mg PO TID PRN 07/08/17 [ History Confirmed 07/08/17] predniSONE TAB* [Deltasone TAB*] 40 mg PO DAILY 07/08/17 [History Confirmed ] PMH/Surg Hx/FS Hx/Imm Hx Cardiovascular History: Reports: Hx Hypertension Denies: Hx Pacemaker/ICD, Other Cardiovascular Problems/Disorders Respiratory History: Denies: Other Respiratory Problems/Disorders GI History: Reports: Hx Gastroesophageal Reflux Disease - ON MEDICATION FOR, Hx Irritable Bowel - ON MEDICATION FOR, Hx Ulcer - GERD.IBS.ESOPHAGITIS, Other GI Disorders - HX OF GASTRITIS Musculoskeletal History: Reports: Hx Arthritis - NECK SPINE Sensory History: Reports: Hx Contacts or Glasses - READING GLASSES Denies: Hx Hearing Aid Opthamlomology History: Reports: Hx Contacts or Glasses - READING GLASSES Neurological History: Reports: Hx Seizures - PSEUDO SEIZURE- 3 SEIZURES BETWEEN 2599-2462- STATES RELATED TO MEDS Denies: Other Neuro Impairments/Disorders Psychiatric History: Reports: Hx Anxiety - HX OF, Hx Depression - HX OF Denies: Hx Panic Disorder - Surgical History Surgery Procedure, Year, and Place: 1988 93 96 3 C 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 2008 LEFT BUNIONECTOMY [facility] [place]. 2008 EXPLORATORY ABDOMINAL LAPAROSOPIC,. 04/14/13- REMOVED PLATE LEFT ARM, [facility] [place]. 2009 FUSION C 4 -5 5-6 [facility],. 10/2012 LEFT ULNA SHORTENING WITH ORIF, [facility] [place]. 2011 GANGLION CYST LEFT HAND [facility]. BUNIONECTOMY-RIGHT 1ST [facility] Hx Anesthesia Reactions: No Infectious Disease History: No Infectious Disease History: Denies: Traveled Outside the [place] in Last 30 Days - Family History Known Family History: Positive: Hypertension - Social History Alcohol Use: None Substance Use Type: Reports: None Smoking Status (MU): Never Smoked Tobacco Have You Smoked in the Last Year: No Review of Systems Constitutional: Negative Positive: Cough All Other Systems Reviewed And Are Negative: Yes Physical Exam Triage Information Reviewed: Yes Vital Signs On Initial Exam: Initial Vitals Temp Pulse Resp BP Pulse Ox 98.5 F 82 16 135/85 97 07/08/17 15:24 07/08/17 15:24 07/08/17 15:24 07/08/17 15:24 07/08/17 15:24 Vital Signs Reviewed: Yes Appearance: Positive: Well-Appearing, No Pain Distress Skin: Positive: Warm, Skin Color Reflects Adequate Perfusion Head/Face: Positive: Normal Head/Face Inspection Eyes: Positive: EOMI ENT: Positive: Pharynx normal, TMs normal. Negative: Sinus tenderness Neck: Positive: Supple, Nontender Respiratory/Lung Sounds: Positive: Clear to Auscultation, Breath Sounds Present. Negative: Wheezes Cardiovascular: Positive: RRR. Negative: Murmur Abdomen Description: Positive: Nontender Musculoskeletal: Positive: Strength/ROM Intact Neurological: Positive: Sensory/Motor Intact, Alert, Oriented to Person Place, Time, CN Intact II-III Psychiatric: Positive: Normal Diagnostics - Vital Signs Vital Signs Temp Pulse Resp BP Pulse Ox 07/08/17 15:24 98.5 F 82 16 135/85 97 - Laboratory Lab Results: Lab Results 07/08/17 Range/Units 15:44 Influenza A (Rapid) Negative (Negative) Influenza B (Rapid) Negative (Negative) Lab Statement: Any lab studies that have been ordered have been reviewed, and results considered in the medical decision making process. Disposition - Diagnoses Provider Diagnoses: Acute bronchitis Discharge - Discharge Plan Condition: Good Disposition: HOME Patient Education Materials: Acute Bronchitis (ED) Referrals: Igor Lombardo MD [Primary Care Provider] - Additional Instructions: continue your inhaler and cough pills
[2017-07-08 17:14] VITALS: BP 137/81
--- NOTE | 2017-07-08 17:25 | RAD ---
INDICATION: Cough, congestion, headache and malaise x5 weeks COMPARISON: Most recent comparison chest x-rays dated February 23, 2013 TECHNIQUE: PA and lateral views of the chest were obtained. FINDINGS: The heart and mediastinum are normal in size and contour. The lungs are grossly clear. There is no evidence of large pleural effusion. A plate and screw fixator is again noted overlying the lower cervical spine. There is no radiographic evidence of free air beneath the diaphragm IMPRESSION: No radiographic evidence of acute cardiopulmonary disease.
== END 2017-07-08 17:33 | disposition home or self-care (01) ==
LOC: UCCORT 14:47
DX: J20.9 Acute bronchitis, unspecified (principal); I10 Essential (primary) hypertension; K21.9 Gastro-esophageal reflux disease without esophagitis; F41.9 Anxiety disorder, unspecified; F32.9 Major depressive disorder, single episode, unspecified; Z90.710 Acquired absence of both cervix and uterus; Z88.8 Allergy status to other drugs, medicaments and biological substances
CPT/HCPCS: 71046; 87502; 99212; G0463

== ENCOUNTER 2017-07-12 07:04 | Emergency (ER) | payer BC ==
[2017-07-12 07:14] VITALS: BP 129/84
--- NOTE | 2017-07-12 07:29 | UC ---
Respiratory Complaint HPI - HPI Summary HPI Summary: cough x 1 week nasal congestion, sore throat, fever, chills and body aches was seen 4 days ago dx with Bronchitis - History of Current Complaint Chief Complaint: UCGeneralIllness Stated Complaint: flu like symp Time Seen by Provider: 07/12/17 07:13 Hx Obtained From: Patient Hx Last Menstrual Period: 2006 Onset/Duration: Gradual Onset, Lasting Days - 7, Still Present Severity Initially: Moderate Severity Currently: Moderate Character: Cough: Nonproductive Aggravating Factors: Exertion, Deep Breaths Associated Signs And Symptoms: Positive: Fever, Chills, URI, Nasal Congestion. Negative: Wheezing, Hemoptysis, Dizziness, Calf Pain, Calf Swelling, Sinus Discomfort - Allergies/Home Medications Allergies/Adverse Reactions: Allergies Allergy/AdvReac Type Severity Reaction Status Date / Time CI Pigment Blue 63 Allergy Severe PSUDEO Verified 07/12/17 07:14 [From Cymbalta] SEIZURES Duloxetine [From Cymbalta] Allergy Severe PSUDEO Verified 07/12/17 07:14 SEIZURES Gabapentin Allergy Severe SYNCOPE Verified 07/12/17 07:14 Pregabalin [From Lyrica] Allergy Severe See Comment Verified 07/12/17 07:14 PMH/Surg Hx/FS Hx/Imm Hx Cardiovascular History: Hypertension GI/ History: Gastroesophageal Reflux - Surgical History Surgical History: Yes Surgery Procedure, Year, and Place: 1988 93 96 3 C 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 2006 HYSTERECTOMY SH[employer]ITCH[employer]. 2008 LEFT BUNIONECTOMY [facility] [place]. 2008 EXPLORATORY ABDOMINAL LAPAROSOPIC,. 04/14/13- REMOVED PLATE LEFT ARM, [facility] [place]. 2009 FUSION C 4 -5 5-6 [facility] [place],. 10/2012 LEFT ULNA SHORTENING WITH ORIF, [facility] [place]. 2011 GANGLION CYST LEFT HAND [facility] [place]. BUNIONECTOMY-RIGHT 1ST [facility] - Family History Known Family History: Positive: Hypertension - Social History Alcohol Use: None Substance Use Type: None Smoking Status (MU): Never Smoked Tobacco Have You Smoked in the Last Year: No - Immunization History Most Recent Influenza Vaccination: Not the 2017/2017 Season Review of Systems Constitutional: Fever, Chills, Fatigue Skin: Negative Eyes: Negative ENT: Sore Throat, Nasal Discharge Respiratory: Cough Cardiovascular: Negative Is Patient Immunocompromised?: No All Other Systems Reviewed And Are Negative: Yes Physical Exam Triage Information Reviewed: Yes Appearance: Well-Appearing, No Pain Distress, Well-Nourished Vital Signs: Initial Vital Signs Temp 99.7 F 07/12/17 07:10 Pulse 95 07/12/17 07:10 Resp 16 07/12/17 07:10 BP 129/84 07/12/17 07:10 Pulse Ox 98 07/12/17 07:10 Vital Signs Reviewed: Yes Eyes: Positive: Conjunctiva Clear ENT: Positive: Normal ENT inspection, Hearing grossly normal, Pharynx normal, Nasal congestion Neck exam: Normal Neck: Positive: Supple, Nontender Respiratory: Positive: Chest non-tender, Lungs clear, Normal breath sounds Cardiovascular: Positive: RRR, No Murmur, Pulses Normal Bowel Sounds: Positive: Present Skin Exam: Normal UC Diagnostic Evaluation - Laboratory O2 Sat by Pulse Oximetry: 98 Respiratory Course/Dx - Differential Dx/Diagnosis Provider Diagnoses: influenza Discharge - Discharge Plan Condition: Stable Disposition: HOME Prescriptions: Oseltamivir CAP* [Tamiflu CAP*] 75 mg PO BID #10 cap Patient Education Materials: Influenza (ED) Referrals: Igor Lombardo MD [Primary Care Provider] - If Needed
== END 2017-07-12 07:40 | disposition home or self-care (01) ==
LOC: UCCORT 07:04
DX: J11.1 Influenza due to unidentified influenza virus with other respiratory manifestations (principal); I10 Essential (primary) hypertension; Z88.8 Allergy status to other drugs, medicaments and biological substances; Z91.041 Radiographic dye allergy status
CPT/HCPCS: 87502; 99212; G0463

== ENCOUNTER 2017-10-30 12:27 | Emergency (ER) | payer BC ==
[2017-10-30 12:56] VITALS: BP 136/85
--- NOTE | 2017-10-30 13:30 | UC ---
Throat Pain/Nasal Branden HPI - HPI Summary HPI Summary: Pt c/o sudden on set of nasal congestion, cough, bilateral ear fullness, KYLE and cough X 5 days - History of Current Complaint Chief Complaint: UCGeneralIllness Stated Complaint: EAR(S), CONGESTION Time Seen by Provider: 10/30/17 13:05 Hx Last Menstrual Period: 2006 ?: No Onset/Duration: Lasting Days, Still Present Severity: Mild Pain Intensity: 0 Associated Signs & Symptoms: Positive: Sinus Discomfort - Epiglottits Risk Factors Epiglottis Risk Factors: Negative - Allergies/Home Medications Allergies/Adverse Reactions: Allergies Allergy/AdvReac Type Severity Reaction Status Date / Time duloxetine [From Cymbalta] Allergy See Comment Verified 10/30/17 12:46 gabapentin Allergy See Comment Verified 10/30/17 12:46 pregabalin [From Lyrica] Allergy See Comment Verified 10/30/17 12:46 Home Medications: Home Medications Acetaminophen/Diphenhydramine [Tylenol Pm Ex-Strength Caplet] 1 each PO BEDTIME 10/30/17 [History Confirmed 10/30/17] Calcium Polycarbophil [Fiber] 625 mg PO DAILY 10/30/17 [History Confirmed ] Omeprazole CAP* [Prilosec CAP* 20 MG] 20 mg PO DAILY 10/30/17 [History Confirmed 10/30/17] Triamterene/HCTZ 37.5-25 MG* [Dyazide CAP*] 1 cap PO DAILY 10/30/17 [History Confirmed 10/30/17] PMH/Surg Hx/FS Hx/Imm Hx Previously Healthy: Yes - Surgical History Surgical History: Yes Surgery Procedure, Year, and Place: 1988 93 96 3 C 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 2009 LEFT [place]OM[place] [facility] [place]. 2009 EXPLORATORY ABDOMINAL LAPAROSOPIC,. 04/14/13- REMOVED PLATE LEFT ARM, [facility] [place]. 2009 FUSION C 4 -5 5-6 [facility] [place],. 10/2012 LEFT ULNA SHORTENING WITH ORIF, [facility] [place]. 2012 GANGLION CYST LEFT HAND [facility] [place]. BUNIONECTOMY-RIGHT 1ST [facility] - Family History Known Family History: Positive: Hypertension - Social History Occupation: Employed Full-time Alcohol Use: None Substance Use Type: None Smoking Status (MU): Never Smoked Tobacco Have You Smoked in the Last Year: No - Immunization History Most Recent Influenza Vaccination: Not the Season Review of Systems Constitutional: Negative Skin: Negative Eyes: Negative ENT: Ear Ache, Sinus Congestion Respiratory: Negative Cardiovascular: Negative Gastrointestinal: Negative Genitourinary: Negative Motor: Negative Neurovascular: Negative Musculoskeletal: Negative Neurological: Headache Psychological: Negative Is Patient Immunocompromised?: No All Other Systems Reviewed And Are Negative: Yes Physical Exam Triage Information Reviewed: Yes Appearance: Well-Appearing Vital Signs: Initial Vital Signs Temp 98.9 F 10/30/17 12:53 Pulse 83 10/30/17 12:53 Resp 14 10/30/17 12:53 BP 136/85 10/30/17 12:53 Pulse Ox 99 10/30/17 12:53 Eye Exam: Normal ENT: Positive: Nasal congestion, TM bulging, Other - cerumen impaction right ear Neck exam: Normal Respiratory Exam: Normal Cardiovascular Exam: Normal Musculoskeletal Exam: Normal Neurological Exam: Normal Psychological Exam: Normal Skin Exam: Normal Throat Pain/Nasal Course/Dx - Differential Dx/Diagnosis Differential Diagnosis/HQI/PQRI: Otitis Media, URI Provider Diagnoses: right ear cerumen impaction. allergic rhinitis Discharge - Sign-Out/Discharge Documenting (check all that apply): Discharge/Admit/Transfer - Discharge Plan Condition: Stable Disposition: HOME Prescriptions: Cetirizine HCl/Pseudoephedrine [Zyrtec-D Tablet] 1 each PO DAILY #10 tab Fluticasone NASAL SPRAY 50MCG* [Flonase NASAL SPRAY 50MCG*] 2 spray BOTH NARES DAILY #1 btl Patient Education Materials: Cerumen Impaction (ED), Allergic Rhinitis (ED) Referrals: Igor Lombardo MD [Primary Care Provider] - If Needed - Billing Disposition and Condition Condition: STABLE Disposition: HOME
== END 2017-10-30 13:44 | disposition home or self-care (01) ==
LOC: UCCORT 12:27
DX: Z88.8 Allergy status to other drugs, medicaments and biological substances (principal); H61.21 Impacted cerumen, right ear; J30.89 Other allergic rhinitis
CPT/HCPCS: 99212; G0463

== ENCOUNTER 2018-05-31 15:40 | Emergency (ER) | payer BC ==
--- OUTSIDE RECORDS SUMMARY | 2018-05-31 15:51 | XMS REPORT ---
:1970 External Reference #:[id number] Author Organization [facility] Address [address] [place] [address] Phone [phone] Care Team Providers Name Role Phone Addis Law Care Team Information Locum [facility] Hospitalist Unavailable Addis Law Primary Care Physician Unavailable Payers Type Date Identification Numbers Payment Provider Subscriber Commercial Effective: Policy Number: Saundra Oral Maderasey 2012 [id number] Group Number: [id number] [address] PayID: [id number] [place] [address] Medigap Part B Effective: Policy Number: BC/BS Of NICOL Oral York 2011 [id number] Expires: 2013 PayID: [id number] [place] [address] Problems Date Description Provider Status Onset: 02/28/2014 [...] Pets Household pets include a dog 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 Fiber Tabs / Active Tablets 625mg prn Unknown 0000 Tylenol PM / Active Tablets 500-25mg 1 po q hs Unknown Extra Strength 0000 Hydrocodone 07/25/ Hx Suer 10-8mg/5M 230ml 2.5ml by Yazmin Rodriguez Polistirex/Chl 2018 - L mouth up to 3 Abhi orpheniramine 05/27/ times daily [employer] SAL[employer] Polistirex 2018 as needed for cough; may take 5mL at bedtime dose Prednisone 07/03/ Hx Tablets 20mg 8tabs take 2 by J20.9 Yazmin Rodriguez 2018 - mouth as one Abhi 05/28/ dose daily [employer] 2018 until gone Acetaminophen- 07/03/ Hx Tablets 300-30mg 25tab take one by J20.9 Yazmin Rodriguez Codeine #3 2018 - s mouth every 6 Abhi, 05/27/ hours as [employer] 2018 needed for cough. may take 2 as one dose at bedtime. Ventolin HFA 07/03/ Hx Aerosol 108(90Bas 18gm take 1-2 J20.9 Yazmin Rodriguez 2018 - e) puffs inhaled Abhi, 05/27/ mcg/Act every 4 hours [employer] 2018 as needed for wheezing or tightness in the chest Benzonatate 07/03/ Hx Capsules 200mg 30cap take one by J20.Jeannine Rodriguez 2018 - s mouth 3 times Abhi, 05/27/ daily as [employer] 2018 needed for cough Wellbutrin 08/20/ Hx Tablets 75mg 60tab 1 po bid Igor Smith 2013 - s Grupo, M.D. 2014 Fluoxetine HCL 05/07/ Hx Capsules 10mg 60cap 1 by mouth Igor Smith 2012 - s twice a day Grupo, M.D. 2017 Elavil 03/12/ Hx 10 30uni use qhs Igor Smith 2012 - ts Grupo, 08/20/ M.D. 2013 Vicodin 03/12/ Hx Tablets 5-300mg 50tab 1 po q4hrs Igor Smith 2012 - s prn dt call Grupo, M.D. 2013 Back Brace 02/15/ Hx needs new Igor Smith 2013 - back brace Grupo, 11/10/ for M.D. 2015 fibromyalgia ne Doxycycline 06/22/ Hx Capsules 100mg 16cap use 1bid Igor Smith Hyclate 2011 - Grupo, 09/18/ M.D. 2013 Triamterene/Hy 04/17/ Hx Capsules 37.5-25mg 30cap take one Igor Smith drochlorothiaz 2011 - capsule by Grupo, nia 07/03/ mouth every M.D. 2018 day Prednisone 04/06/ Hx Tablets 20mg 18tab 3 x 3 days Igro Smith 2011 - s 2 x 3 days 1 Grupo, 09/18/ x 3 days M.D. 2013 Physical Hx needs PT to Igor Smith Therapy 2012 - her hand Grupo, 09/18/ MKennedi. 2013 Prednisone // Hx Tablets 5mg 9tabs 2 tabs x 3 Lupe 2011 - , then 1 Elijah, 04/03/ tabs x 3 Afnp-C 2011, Prednisone 11/21/ Hx Tablets 5mg 9tabs 2 tabs x 3 Lupe 2011 - , then 1 Elijah, 12/02/ tabs x 3 Afnp-C 2011, Dyazide 09/15/ Hx Capsules 37.5-25mg 30cap Take One A 2011 Elijah, 09/18/ Afnp-C 2012 Ambien 09/03/ Hx Tablets 10mg 30tab 1 po q hs prn Igor Smith 2011 - s Grupo, 09/15/ Jaspreet. 2011 Miralax 06/25/ Hx Powder 3350NF 510gm 06/24 teaspoon 564.09 Addis Lee 2010 - in 8 oz water Thanh, 09/03/ at night. Manuela 2011 Lansoprazole / Hx Capsules 30mg 1 po qd Unknown 0000 - DR 2011 Estropipate / Hx Tablets 1.5mg 30tab 1 PO qd Mily Bolanos 0000 - s Caleb 05/15/ Manuela 2014 Docusate / Hx Capsules 240mg 1 PO bid Unknown Calcium - 2011 Limbrel / Hx Capsules 500mg 1 po bid Unknown 0000 - 2011 Hyomax-SR / Hx Tablets ER 0.375mg 1 PO bid Unknown 0000 - 12HR 2011 Vicodin 00/ Hx Tablets 5-500mg 1 to 2 po Unknown 0000 - every six 09/03/ hours prn. 2011 Omeprazole / Hx Tablets DR 20mg 30tab 1 by mouth Igor farris every day Grupo, 10/10/ Manuela 2016 [place] 3-6-9 /00/ Hx Capsules Unknown Complex - 2011 Librax 00/ Hx Capsules 2.5-5mg 120ca take 1 Unknown 0000 - ps capsule 3-4 09/18/ times a day 2012 as needed Fluoxetine / Hx Capsules 10mg 60cap 1 po bid Igor Smith 0000 - s Grupo 05/16/ Manuela 2013 Prednisone / Hx Tablets 60mg 4tabs 1 po qd x 4 Unknown - days 2011 Cipro / Hx Tablets 500mg 1 po bid x 10 Unknown 0000 - days 2011 Linzess / Hx Capsules 145mcg Unknown - 2016 Probiotic / Hx Capsules Unknown - 2012 Premarin / Hx Tablets 1 by mouth Unknown 0000 - every day 2016 Medications Administered in Office Medication Date Status Form Strength Qnty SIG Indications Ordering Provider Injection 09/20/ Administered Injection Igor Smith Subcutaneous Or Roby James M.D. Immunizations CPT Code Status Date Vaccine Lot # [id number] Given 05/15/2015 Tdap Tetanus, W Pertussis [id number] Vital Signs Date Vital Result Comment 05/28/2018 BP Systolic 162 mmHg BP Diastolic 94 mmHg Heart Rate 84 /min Body Temperature 98.6 F Respiratory Rate 16 /min Weight 191.38 lb 07/03/2017 BP Systolic 132 mmHg BP Diastolic [...] Test Date Test Result H/L Range Note Rapid Influenza A & B 07/12/2017 Influenza A Molecular NEGATIVE Negative 1 Molecular Influenza B Molecular POSITIVE Negative Rapid Influenza A & B 07/08/2017 Influenza A Molecular NEGATIVE Negative 2 Molecular Influenza B Molecular NEGATIVE Negative Complete Blood Count 02/21/2017 WBC 5.9 x10^3/UL 3.6-9.6 RBC 4.83 x10^6/UL 3.90-5.70 HGB 14.2 g/dL 12.1-17.2 HCT 42 % 36-50 MCV 88.0 fL 82.2-97.4 MCH 29.4 pg 27.6-33.3 MCHC 33.6 g/dL 33.0-35.5 RDW 13.8 % High 11.6-13.7 PLT 385 x10^3/UL 150-400 MPV 6.8 fL Low 7.4-10.4 Gran # 3.9 x10^3/UL 1.5-7.2 Lymph# 1.7 x10^3/UL 0.7-4.9 [place]# 0.3 x10^3/UL 0.1-0.9 Gran % 65.6 % 42.2-75.2 Lymph % 28.9 % 20.5-51.1 [place]% 5.5 % 1.7-9.3 Comprehensive Metabolic Prof 02/21/2017 [...] 02/21/2017 Lyme IgG/IgM Ab <0.91 ISR 0.00-0.90 3, 4 Reflex Lyme Disease Ab, Quant, IgM <0.80 index 0.00-0.79 3, 5 Laboratory test finding 04/26/2016 Lyme Disease Serology Negative Negative 6 Comprehensive Metabolic Prof 05/19/2015 Sodium 142 mEq/L 134-149 Potassium 4.7 mEq/L 3.6-5.5 Chloride 102 mEq/L 94-112 Carbon Dioxide 27 mEq/L 21-32 Glucose 121 mg/dL High 70-105 7 BUN 16 mg/dL 6-26 Creatinine 0.8 mg/dL 0.6-1.4 BUN/Creat Ratio 20.0 CALC 8.0-36.0 Calcium 10.5 mg/dL High 8.6-10.2 8 Total Protein 8.0 g/dL 6.4-8.3 Albumin 4.9 [...] Platelet Volume 6.6 5.5-11.0 Ua - Micro (a) 11/10/2014 Appearance CLEAR Color YELLOW Glucose, Urine (Fma/CMC/CTX) NEG Bilirubin NEG Ketones NEG SP Grav 1.005 Blood SMALL PH 5.5 Protein NEG Urobil 0.2 Nitrite NEG Leukocytes (Fma/CMC/Centrex) NEG WBC (a,Centrex) 0-1 RBC 5-7 Epith RARE /Lpf Bacteria 1+ /Hpf Throat-Beta Strept 08/09/2014 Throat Beta Strep (SEE NOTE) 9 Culture PTH Intact W/Calcim (CX) 03/04/2014 Calcium 10.8 mg/dL High 8.4-10.4 10 Intact PTH 38.8 pg/mL 10.0-73.0 10 Calcium 10.8 mg/dL High 8.4-10.4 10 CBC Electronic (a) 02/28/2014 WBC 8.5 3.6-9.6 RBC 5.13 3.90-5.70 [...] CALC 8.0-36.0 Calcium 10.5 mg/dL High 8.6-10.2 11 Total Protein 9.1 g/dL High 6.3-8.1 12 Albumin 5.2 g/dL 3.8-5.5 Globulin 4.8 g/dL [...] mg/dL 6-26 Calcium 10.7 mg/dL High 8.6-10.2 14 Chloride 100 mEq/L 94-112 Creatinine 0.9 mg/dL [...] Profile 12/28/2012 Cholesterol 270 mg/dL High 120-200 15 HDL 67 mg/dL 30-85 Triglycerides 152 mg/dL [...] mmol/L 22-32 Anion Gap 6.0 mmol/L 2-11 16 Glucose 104 mg/dL High 70-100 BUN 16 mg/dL 6-24 Creatinine 0.8 mg/dL 0.50-1.40 One Over Creatinine 1.25 BUN/Creatinine Ratio 20.0 8-20 Calcium 9.6 mg/dL 8.1-9.9 Total Protein 6.9 GM/DL 6.2-8.1 Albumin 4.3 GM/DL 3.6-5.4 Globulin 2.6 GM/DL 2-4 Albumin/Globulin Ratio 1.7 1-3 Bilirubin Total 0.8 mg/dL 0.4-1.5 17 Alkaline Phosphatase 65 U/L 30-110 Alt (SGPT) 13 U/L Low 14-54 Ast (Sgot) 21 U/L 12-42 eGFR Non- 79.0 > 60 eGFR 101.7 > 60 18 Laboratory test finding 12/19/2011 Prealbumin 26.7 mg/dL 18-38 C Reactive Protein 1.4 mg/dL High Less Than 0.5 Hemoglobin A1c 5.8 % Less Than 6.0 19 Vitamin D, 25 Hydroxy 12/19/2011 25-Hydroxy Vitamin D2 <4.0 ng/mL () 25-Hydroxy Vitamin D3 36 ng/mL () 25-Hydroxy Vitamin D Total 36 ng/mL () 20 Laboratory test 12/19/2011 Tissue Culture <SEE 21 finding Sensitivity NOTE> Fungal Cult Other Sources <SEE NOTE> 22 Laboratory test finding 11/22/2011 Uric Acid 4.5 mg/dL 2.5-9.2 Laboratory test finding 11/22/2011 Sed Rate ([facility]/Centrex) 16 mm Basic Metabolic Profile 09/16/2011 BUN 25 mg/dL 6-26 Calcium 8.9 mg/dL 8.6-10.2 Chloride 101 mEq/L 94-112 Creatinine 0.8 mg/dL 0.6-1.4 Carbon Dioxide 28 mEq/L 21-32 Glucose 105 mg/dL 70-105 Sodium 139 mEq/L 134-149 Potassium 4.0 mEq/L 3.6-5.5 BUN/Creat Ratio 31.5 Calc 8.0-36.0 Laboratory test finding 09/16/2011 Antinuclear Abs, Ifa Negative 23 Rheumatoid Arth Factor 10.3 IU/mL 0.0-13.9 Laboratory test finding 09/16/2011 Sed Rate ([facility]/Centrex) 16mm Comp Metabolic Panel 05/24/2010 Sodium 137 mmol/L 135-145 Potassium 4.2 mmol/L 3.5-5.0 Chloride 103 mmol/L 101-111 Co2 (Carbon Dioxide) 27.0 mmol/L 22-32 Anion Gap 7.0 mmol/L 2-11 24 Glucose 95 mg/dL 70-100 25 BUN 15 mg/dL 6-24 Creatinine 0.77 mg/dL 0.50-1.40 One Over Creatinine 1.20 BUN/Creatinine Ratio 19.5 8-20 Calcium 9.8 mg/dL 8.1-9.9 Total Protein 7.7 GM/DL 6.2-8.1 Albumin 4.4 GM/DL 3.6-5.4 Globulin 3.3 GM/DL 2-4 Albumin/Globulin Ratio 1.3 1-3 Bilirubin Total 0.8 mg/dL 0.4-1.5 26 Alkaline Phosphatase 72 U/L 30-110 Alt (SGPT) 13 U/L Low 14-54 Ast (Sgot) 20 U/L 12-42 eGFR Non- 88.7 > 60 eGFR 107.3 > 60 27 Urinalysis W/Microscopic 05/24/2010 Ua Color YELLOW Yellow Appearance-Urine CLEAR Clear Specific [place]-Ur 1.012 1.010-1.030 Esterase-Urine NEGATIVE Negative Nitrite NEGATIVE Negative [id number]-Um-FVE NEGATIVE Negative Protein-Urine NEGATIVE Negative PH-Urine 7.0 [...] Total Protein/24HR 36 MG/24HR Low 50-100 1 Avionics Manager: [id number] Avionics Manager: [id number] 1SST 4 Negative <0.91 Equivocal 0.91 - 1.09 Positive >1.09 5 Negative <0.80 Equivocal 0.80 - 1.19 Positive >1.19 IgM levels may peak at 3-6 weeks post infection, then gradually decline. 6 Serologic response to B. burgdorferi infection is not detected, but cannot rule out early infection during which low or undetectable antibody levels to B. burgdorferi may be present. If clinically indicated, a new serum specimen should be submitted in 7-14 days. Test Performed by: [address] [address] Strategy Specialist: Aubrey De La Cruz II, M.D., Ph.D. 7 NON-FASTING 8 consistent w/ previous results 9 RUN DATE: 08/11/14 [facility] LAB LIVE PAGE 1 RUN TIME: [address] [place] [address] Specimen Inquiry Name: NIDIA YORK : [address]: Chantell Lutz MD Acct: [id number] Unit: [id number] AGE: 43 Location: [facility] Re08/09/14 SEX: F Status: DEP ER SPEC: [id number] TENZIN: 08/09/14-1604 [facility] DR: Jackie Guzman NP REQ: [id number] RECD: 08/09/14 STATUS: TOO BRONSON DR: Chantell Lombardo MD _ SOURCE: THROAT SPDESC: ORDERED: Throat Beta Str Procedure Result Verified Site Throat Beta Strep Culture Final 08/11/14- 0826 ML Negative For Group A Beta Streptococcus END OF REPORT * ML=Testing performed at Main Lab DEPARTMENT OF PATHOLOGY, [facility] [employer] [place], [place] [address] Rodolfo Carpenter M.D. Director [facility] # [id number] 10 1 pour off tube refrig 11 RESULTS VERIFIED BY REPEAT ANALYSIS 12 RESULTS VERIFIED BY REPEAT ANALYSIS 13 RUN DATE: 10/25/13 [facility] LAB LIVE PAGE 1 RUN TIME: 152 [facility] [employer] [place], [place] [address] Specimen Inquiry Name: NIDIA YORK : [address]: Lino Noyola MD Acct: [id number] Unit: [id number] AGE: 42 Location: [facility] Re10/21/13 SEX: F Status: REG KENAN SPEC: [id number] TENZIN: 10/21/13- SUBM DR: Lino Noyola MD REQ: [id number] RECD: 10/21/13 STATUS: FANTASMA BRONSON DR: Rowan Lombardo MD [...] specimen is received in formalin labeled Nidia DanteShanika York, Excision Irregular Pigmented Skin Lesion Left Breast Suture=Twelve O'clock Superior [place] Margin and consists of a 3.0 x [...] performed at Main Lab DEPARTMENT OF PATHOLOGY, [address] [place] [address] Rodolfo Carpenter M.D. Director [facility] Permit #[id number] RESULT KASSANDRA'D 15 RESULT KASSANDRA'D 16 Anion gap measurement may be of limited value in the presence of any alkalosis, especially in a combined acid base disorder. . 17 A metabolite of Naproxen, O-desmethylnaproxen, has been shown to interfere with the Jendrassik-[place] method for measuring total bilirubin. Samples from patients who have taken Naproxen have shown spurious elevation in total bilirubin levels. 18 Because ethnic data is not always readily [...] 15-29 5 Kidney failure <15 (or dialysis) 19 THERAPEUTIC TARGET FOR THE TREATMENT OF DIABETES MELLITUS PATIENTS IS <7% HBA1C, AND IN SELECTIVE PATIENTS <6.0%. PLEASE REFER TO [employer] DIABETIC CARE GUIDELINES FOR FURTHER INFORMATION. 20 -- REFERENCE VALUE -- 25-HYDROXY D TOTAL (D2+D3) Optimum levels in the normal population are 25-80 Test Performed by: [address] [address] Strategy Specialist: Julius Baumann III, M.D. 21 RUN DATE: 12/22/11 [facility] NMI LIVE PAGE 1 RUN TIME: 952 Specimen Inquiry RUN USER: INTERFACE Name: NIDIA YORK Status: REG REF Re12/19/11 Age/Sex: 41/F Unit#: [id number] Location: WOUND : 70 SPEC #: [id number] TENZIN: 12/19/11 STATUS: COMP REQ #: [id number] RECD: 12/19/11 [facility] DR[facility]: TISSUE ENTR: 12/19/[address] [facility] [address]: Grupo [facility] ORDERED: TISSUE CS/SMEAR ACT WKST: B 12/22/11 #1 Procedure Result Verified Site > CULTURE SENSITIVITY Final 12/22/11- 0952 ML NORMAL CUTANEOUS MARY LOU TO INCLUDE: FEW COAG NEG STAPHYLOCOCCUS - 2 VARIANTS FEW DIPHTHEROIDS ONE COLONY GRAM NEG BACILLI FEW MICROCOCCUS/KOCURIA SPECIES > GRAM STAIN SMEAR Final 12/20/11- 0752 ML POLYS NONE SMEAR: NO ORGANISMS SEEN ML - [facility] State Permit #[id number] [facility] [employer] [place] [address] DEPARTMENT OF PATHOLOGY, [address] [place] [address] [facility] Permit #[id number] Manuela Taylor M.D. Assistant District Attorney 22 RUN DATE: 01/06/12 [facility] NMI LIVE PAGE 1 RUN TIME: 1507 Specimen Inquiry RUN USER: INTERFACE Name: NIDIA YORK Status: REG REF Re12/19/11 Age/Sex: 41/F Unit#: [id number] Location: WOUND : 70 SPEC #: [id number] TENZIN: 12/19/11-1320 STATUS: TOO REQ #: [id number] RECD: 12/19/11-1409 [facility] DR: Brigette Arrington MD SOURCE: WOUND ENTR: 12/19/11-[address]: Igor Lombardo MD [facility]: HAND,LEFT ORDERED: FUNGAL CULT OT COMMENTS: COMMENTS: tissue culture COMMENTS: fungal hand swab ACT WKST: 01/06/12 #1 Procedure Result Verified Site > FUNGAL CULT OTHER SOURCES Final 01/06/12- 1507 ML FINAL: NO GROWTH OF MYCOTIC ORGANISMS AFTER 3 WEEKS ML - [facility] State Permit #[id number] [address] [place] [address] DEPARTMENT OF PATHOLOGY, [address] [place] [address] [facility] Permit #[id number] Manuela Taylor M.D. Assistant District Attorney 23 Negative <1:80 Borderline 1:80 Positive >1:80 24 Anion gap measurement may be of limited value in the presence of any alkalosis, especially in a combined acid base disorder. . 25 Note change in reference range as of 02/11/08. The change was based on recommendations from the [place] [employer]. 26 A metabolite of Naproxen, O-desmethylnaproxen, has been shown to interfere with the Jendrassik-[place] method for measuring total bilirubin. Samples from patients who have taken Naproxen have shown spurious elevation in total bilirubin levels. 27 Because ethnic data is not always readily [...] Procedures Date CPT Code Description Status 05/15/2015 94899 Electrocardiogram Complete Completed 02/28/2014 35512 Electrocardiogram Complete Completed 09/21/2011 44974 Injection Subcutaneous Or Intramuscular Completed 09/21/2011 73044 Inject, Tendon Origin/Insertion Completed Encounters Type Date Location Provider CPT E/M Dx Office Visit 07/03/2017 1:45p [place] [address] J20.9 Office Visit 02/21/2017 9:10a Main Office Igor Lombardo M.D. 88275 R51 R53.83 R73.9 Office Visit 05/15/2015 6:00p Main Office Addis Law M.D. 82584 M20.11 Z01.818 Z23 Office Visit 11/10/2014 11:00a Main Office Igor Lombardo M.D. 06098 724.5 Office Visit 02/28/2014 2:10p Main Office Igor Lombardo M.D. 24911 786.50 780.4 Office Visit 08/20/2013 1:40p Main Office Igor Lombardo M.D. 42456 729.1 Office Visit 03/12/2013 2:00p Main Office Igor Lombardo M.D. 47404 784.0 Office Visit 12/28/2012 8:00a Main Office Igor Lombardo M.D. 16985 401.1 729.1 Office Visit 09/18/2012 11:00a Main Office Igor Lombardo M.D. 59200 401.1 Office Visit 06/22/2012 11:10a Main Office Igor Lombardo M.D. 45242 528.5 Office Visit 04/03/2012 2:00p Main Office Igor Lombardo M.D. 75820 719.44 Office Visit 12/03/2011 4:00p [facility] Office Igor Lombardo M.D. 39703 719.44 Office Visit 11/22/2011 11:30a [facility] Office Lupe NavaJaclyn 75730 719.44 Office Visit 11/19/2011 2:15p [facility] Tamiko LyleJaclyn 15215 719.44 Office Visit 10/01/2011 9:40a [facility] Igor Lombardo M.D. 74835 729.1 338.4 Office Visit 09/21/2011 10:00a Main Office Igor Lombardo M.D. 35094 719.64 Office Visit 09/16/2011 3:00p Main Office Igor Lombardo M.D. 43395 729.1 782.3 Office Visit 09/04/2011 7:20p Main Office Igor Lombardo M.D. 85117 338.4 729.1 Office Visit 06/25/2010 6:30p Main Office Addis Law M.D. 59313 338.4 564.09 Office Visit 05/28/2010 1:00p Main Office YVETTE HernándezP 88491 724.5 Plan of Care 05/28/2018 - Yazmin Moe, NPI10 Essential (primary) hypertensionNew Medication:Lisinopril 10 mgComments:Call or return to the office if:* you get more than one blood pressure reading above 160/100 (even if only one of the numbers is high)* you feel close to passing out or actually pass out* you have new or worsening swelling in the ankles, legs, hands, or face* you develop palpiatations or funny [id number] HeadacheComments:Likely secondary to the blood pressure. If not improved with the lisinopril, we can look into other causes and therapies.AllComments:1. Patient has been queried about patient's goals/preferences and functional/lifestyle goals at relevant visits. If relevant, describe: Has been discussed, noted above2. Treatment goals as explainedto the patient: see above3. Are there barriers to meeting treatment goals? Yes If Yes, please describe: Barriers include possible insurance limits, disease process, and difficulty with lifestyle changes4. Self- Management goals as described to the patient: Yes, see above As always, we strongly encourage a healthy diet and making physical activity a part of your every day life. If you have questions about how or where to start, please contact the office.
[2018-05-31 15:59] VITALS: BP 143/91
--- NOTE | 2018-05-31 16:11 | UC ---
General HPI - HPI Summary HPI Summary: pt c/o a throbbing headache to L side of her head for 2 weeks. she went to her dentist 4 days ago and her teeth were fine so he took her BP which was elevated. pt then went to her pcp the same day and was started on Lisinopril for ongoing BP in 160's/90's. now, pt has some "sinus burning" and soreness to L side of her neck. she wonders if this is a sinus infection. no hx of fever, runny nose. no associated head injury, visual changes, speech changes. no balance issues and no numbness or weakness. no photo or phono phobias. no nausea. The headache is not abrupt or worst. Pt took 800mg otc IB at 11am and headache improved but did not resolve. Denies hx migraines for self and family. Also, no FMH aneurysm's. - History of Current Complaint Chief Complaint: UCHeadache Stated Complaint: POSSIBLE SINUS INFECTION/HEADACHE Time Seen by Provider: 05/31/18 15:53 Hx Obtained From: Patient Hx Last Menstrual Period: 2006 Onset/Duration: Gradual Onset Timing: Constant Pain Intensity: 8 Aggravating: nothing - Allergy/Home Medications Allergies/Adverse Reactions: Allergies Allergy/AdvReac Type Severity Reaction Status Date / Time duloxetine [From Cymbalta] Allergy See Comment Verified 05/31/18 15:54 gabapentin Allergy See Comment Verified 05/31/18 15:54 pregabalin [From Lyrica] Allergy See Comment Verified 05/31/18 15:54 Home Medications: Home Medications Lisinopril TAB* [Prinivil TAB 5 MG*] 10 mg DAILY 05/31/18 [History Confirmed 03/10] PMH/Surg Hx/FS Hx/Imm Hx Cardiovascular History: Hypertension - new dx 4 days ago GI/ History: Gastroesophageal Reflux - Surgical History Surgical History: Yes Surgery Procedure, Year, and Place: 1988 93 96 3 C 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 2006 HYSTERECTOMY [employer]. 2008 LEFT BUNIONECTOMY [facility] [place]. 2008 EXPLORATORY ABDOMINAL LAPAROSOPIC,. 04/14/13- REMOVED PLATE LEFT ARM, [facility] [place]. 2009 FUSION C 4 -5 5-6 [facility] [place],. 10/2012 LEFT ULNA SHORTENING WITH ORIF, [facility] [place]. 2011 GANGLION CYST LEFT HAND [facility] [place]. BUNIONECTOMY-RIGHT 1ST [facility] - Family History Known Family History: Positive: Hypertension, Diabetes - Social History Alcohol Use: None Substance Use Type: None Smoking Status (MU): Never Smoked Tobacco Have You Smoked in the Last Year: No - Immunization History Most Recent Influenza Vaccination: Not the 2016/2017 Season Most Recent Tetanus Shot: utd Review of Systems All Other Systems Reviewed And Are Negative: Yes Constitutional: Positive: Negative Skin: Positive: Negative Eyes: Positive: Negative ENT: Positive: Negative Respiratory: Positive: Negative Cardiovascular: Positive: Negative Gastrointestinal: Positive: Negative Genitourinary: Positive: Negative Motor: Positive: Negative Neurovascular: Positive: Negative Musculoskeletal: Positive: Other: - L neck sore Neurological: Positive: Headache Psychological: Positive: Negative Is Patient Immunocompromised?: No Physical Exam Triage Information Reviewed: Yes Appearance: Well-Appearing Vital Signs: Initial Vital Signs Temp 98.6 F 05/31/18 15:55 Pulse 89 05/31/18 15:55 Resp 17 05/31/18 15:55 BP 143/91 05/31/18 15:55 Pulse Ox 99 05/31/18 15:55 Vital Signs Reviewed: Yes Eyes: Positive: Conjunctiva Clear, Other: - PERRL, EOMI. No temporal tenderness or cords. ENT: Positive: Pharynx normal, TMs normal. Negative: Nasal drainage, Sinus tenderness Neck: Positive: Supple, No Lymphadenopathy, Tenderness @ - L side of trapezius. , Other: - No carotid bruits.. Negative: Nuchal Rigidity Respiratory: Positive: Lungs clear, Normal breath sounds Cardiovascular: Positive: RRR, No Murmur Abdomen Description: Positive: Nontender, No Organomegaly, Soft. Negative: Distended, Guarding Bowel Sounds: Positive: Present Musculoskeletal: Positive: No Edema Neurological: Positive: Other: - A&O x3. CN 2-12 grossly intact. Steady gait. Negative rhomberg and pronator drift. 5/5 strength, 2+ reflexes and sensation intact x4. Psychological: Positive: Age Appropriate Behavior Skin Exam: Normal Diagnostics - Radiology No standard instances Radiology Interpretation Completed By: Radiologist - Negative unenhanced head CT. Re-Evaluation - Re-Evaluation First Eval Re-Evaluation Time: 17:55 Change: Improved - pt states headache has resolved. Course/Dx - Course Course Of Treatment: Neuro exam is reassuring. Not an abrupt or worst headache to suggest bleed. CT brain unremarkable including sinuses. No concern for hypertensive urgency or emergency. No concern for temporal arteritis or dissection. Need for close f/u with PCP stressed and go to ER for any worsening. - Diagnoses Provider Diagnosis: Headache Discharge - Sign-Out/Discharge Documenting (check all that apply): Patient Departure All imaging exams completed and their final reports reviewed: Yes - Discharge Plan Condition: Stable Disposition: HOME Patient Education Materials: General Headache (ED) Referrals: Igor Lombardo MD [Primary Care Provider] - As Soon As Possible Additional Instructions: GO TO ER FOR ANY WORSENING. - Billing Disposition and Condition Condition: STABLE Disposition: Home
[2018-05-31] MEDS ORDERED: Ondansetron ODT TAB* 4 MG SL PRN (16:22)
[2018-05-31] MEDS ORDERED: Ondansetron ODT TAB* 4 MG PO ONE (16:27)
[2018-05-31] MEDS ORDERED: Ketorolac INJ* 30 MG/ML 1 ML VIAL IM ONE (17:15)
== END 2018-05-31 18:00 | disposition home or self-care (01) ==
LOC: UCCORT 15:40
DX: R51 Headache (principal); Z88.8 Allergy status to other drugs, medicaments and biological substances
CPT/HCPCS: 70450; 96372; 99212; A9270-GY; G0463; J1885

== ENCOUNTER 2018-11-18 11:29 | Emergency (ER) | payer BC ==
[2018-11-18 11:57] VITALS: BP 134/81
--- NOTE | 2018-11-18 12:28 | ED ---
Lower Extremity - HPI Summary HPI Summary: 48 yr old female with the complaint of right ankle and foot pain. Onset of pain was at 730 am today when the patient rolled her foot/ankle. The patient complains of pain over the anterior lateral ankle with some bruising. - History of Current Complaint Chief Complaint: UCLowerExtremity Stated Complaint: RIGHT ANKLE INJURY Time Seen by Provider: 11/18/18 11:59 Hx Last Menstrual Period: 2006 Pain Intensity: 4 - Allergies/Home Medications Allergies/Adverse Reactions: Allergies Allergy/AdvReac Type Severity Reaction Status Date / Time duloxetine [From Cymbalta] Allergy pseudo Verified 11/18/18 11:57 seizures gabapentin Allergy pseudo Verified 11/18/18 11:57 seizures pregabalin [From Lyrica] Allergy pseudo Verified 11/18/18 11:57 seizures Home Medications: Home Medications Ibuprofen 800 mg PO ONCE PRN 11/18/18 [History Confirmed 11/18/18] PMH/Surg Hx/FS Hx/Imm Hx Cardiovascular History: Reports: Hx Hypertension Denies: Hx Pacemaker/ICD, Other Cardiovascular Problems/Disorders Respiratory History: Denies: Other Respiratory Problems/Disorders GI History: Reports: Hx Gastroesophageal Reflux Disease - ON MEDICATION FOR, Hx Irritable Bowel - ON MEDICATION FOR, Hx Ulcer - GERD.IBS.ESOPHAGITIS, Other GI Disorders - HX OF GASTRITIS Musculoskeletal History: Reports: Hx Arthritis - NECK SPINE Sensory History: Reports: Hx Contacts or Glasses - READING GLASSES Denies: Hx Hearing Aid Opthamlomology History: Reports: Hx Contacts or Glasses - READING GLASSES Neurological History: Reports: Hx Seizures - PSEUDO SEIZURE- 3 SEIZURES BETWEEN [id number]- STATES RELATED TO MEDS Denies: Other Neuro Impairments/Disorders Psychiatric History: Reports: Hx Anxiety - HX OF, Hx Depression - HX OF Denies: Hx Panic Disorder - Surgical History Surgery Procedure, Year, and Place: 1988 93 96 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 2008 LEFT BUNIONECTOMY [facility] [place]. 2008 EXPLORATORY ABDOMINAL LAPAROSOPIC,. 04/14/13- REMOVED PLATE LEFT ARM, [facility] [place]. 2009 FUSION C 4 -5 5-6 [facility],. 10/2012 LEFT ULNA SHORTENING WITH ORIF, [facility] [place]. 2011 GANGLION CYST LEFT HAND [facility]. BUNIONECTOMY-RIGHT 1ST [facility] Hx Anesthesia Reactions: No Infectious Disease History: No Infectious Disease History: Denies: Traveled Outside the [place] in Last 30 Days - Family History Known Family History: Positive: Hypertension, Diabetes - Social History Alcohol Use: None Substance Use Type: Reports: None Smoking Status (MU): Never Smoked Tobacco Have You Smoked in the Last Year: No Review of Systems Constitutional: Negative Positive: Other - ankle foot pain All Other Systems Reviewed And Are Negative: Yes Physical Exam Triage Information Reviewed: Yes Vital Signs On Initial Exam: Initial Vitals Temp Pulse Resp BP Pulse Ox 98.2 F 74 16 134/81 100 11/18/18 11:52 11/18/18 11:52 11/18/18 11:52 11/18/18 11:52 11/18/18 11:52 Vital Signs Reviewed: Yes Appearance: Positive: Well-Appearing, No Pain Distress Skin: Positive: Other - bruise over the right anteriorlateral ankle area with mild STS. There is minimal tenderness on palpation of this area. Head/Face: Positive: Normal Head/Face Inspection Eyes: Positive: EOMI, SUDARSHAN ENT: Positive: Normal ENT inspection Neck: Positive: Nontender Respiratory/Lung Sounds: Positive: Clear to Auscultation, Breath Sounds Present Cardiovascular: Positive: RRR, Pulses are Symmetrical in both Upper and Lower Extremities Abdomen Description: Negative: Distended Musculoskeletal: Positive: Other - mild tenderness over the right anterior lateral ankle without deformity. Neurological: Positive: Sensory/Motor Intact, Alert, Oriented to Person Place, Time, CN Intact II-III Psychiatric: Positive: Normal Diagnostics - Vital Signs Vital Signs Temp Pulse Resp BP Pulse Ox 11/18/18 11:52 98.2 F 74 16 134/81 100 - Laboratory Lab Statement: Any lab studies that have been ordered have been reviewed, and results considered in the medical decision making process. - Radiology right ankle foot Radiology Interpretation Completed By: Radiologist - no fracture Lower Extremity Course/Dx - Course Course Of Treatment: 48 yr old with right ankle sprain. DC home. She walks well. Splint and crutches. - Diagnoses Provider Diagnoses: Right ankle sprain Discharge - Sign-Out/Discharge Documenting (check all that apply): Patient Departure All imaging exams completed and their final reports reviewed: Yes - Discharge Plan Condition: Good Disposition: HOME Patient Education Materials: Ankle Sprain (ED) Referrals: Igor Lombardo MD [Primary Care Provider] - - Billing Disposition and Condition Condition: GOOD Disposition: Home
== END 2018-11-18 12:55 | disposition home or self-care (01) ==
LOC: UCCORT 11:29
DX: S93.401A Sprain of unspecified ligament of right ankle, initial encounter (principal); X58.XXXA Exposure to other specified factors, initial encounter
CPT/HCPCS: 99212; G0463

== ENCOUNTER 2018-12-21 18:18 | Emergency (ER) | payer BC ==
[2018-12-21 18:58] VITALS: BP 124/85
--- NOTE | 2018-12-21 20:11 | UC ---
Throat Pain/Nasal Branden HPI - HPI Summary HPI Summary: 48 yo female with right cheek numbness and perioral burning x 1 week no facial droop no KYLE had upper endoscopy in [place] ...diagnosed with GERD - History of Current Complaint Chief Complaint: UCRespiratory Stated Complaint: ORAL ISSUE Time Seen by Provider: 12/21/18 19:44 Hx Obtained From: Patient Hx Last Menstrual Period: 2006 Onset/Duration: Gradual Onset, Lasting Days Severity: Moderate Pain Intensity: 6 Pain Scale Used: 0-10 Numeric Cough: None Associated Signs & Symptoms: Negative: Dysphagia, FB Sensation, Drooling, Wheezing, Hoarseness, Sinus Discomfort, Nasal Discharge, Fever, Vomiting, Rash - Epiglottits Risk Factors Epiglottis Risk Factors: Negative - Allergies/Home Medications Allergies/Adverse Reactions: Allergies Allergy/AdvReac Type Severity Reaction Status Date / Time duloxetine [From Cymbalta] Allergy pseudo Verified 12/21/18 18:53 seizures gabapentin Allergy pseudo Verified 12/21/18 18:53 seizures pregabalin [From Lyrica] Allergy pseudo Verified 12/21/18 18:53 seizures PMH/Surg Hx/FS Hx/Imm Hx Previously Healthy: Yes Neurological History: Other Other Neurological History: hx right sided Perkins's palsy - Surgical History Surgical History: Yes Surgery Procedure, Year, and Place: 1988 93 96 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 [place] [facility] [place] 2008 EXPLORATORY ABDOMINAL LAPAROSOPIC,. 04/14/13- [place] PL[place] [facility] [place]. [place] FUSION C 4 -5 5-6 [facility],. 10/2012 LEFT ULNA SHORTENING WITH ORIF[place] [facility] [place] 2011 GANGLION CYST LEFT HAND [facility]. BUNIONECTOMY-RIGHT 1ST [facility] - Family History Known Family History: Positive: Hypertension, Diabetes - Social History Alcohol Use: None Substance Use Type: None Smoking Status (MU): Never Smoked Tobacco Have You Smoked in the Last Year: No - Immunization History Most Recent Influenza Vaccination: Not the 2017/2018 Season Most Recent Tetanus Shot: utd Review of Systems All Other Systems Reviewed And Are Negative: Yes Constitutional: Positive: Negative Skin: Positive: Negative Eyes: Positive: Negative ENT: Positive: Negative Respiratory: Positive: Negative Cardiovascular: Positive: Negative Gastrointestinal: Positive: Negative Genitourinary: Positive: Negative Motor: Positive: Negative Neurovascular: Positive: Negative Musculoskeletal: Positive: Negative Neurological: Positive: Negative Psychological: Positive: Negative Physical Exam Triage Information Reviewed: Yes Appearance: Well-Appearing, No Pain Distress, Well-Nourished Vital Signs: Initial Vital Signs Temp 97.8 F 12/21/18 18:54 Pulse 70 12/21/18 18:54 Resp 16 12/21/18 18:54 BP 124/85 12/21/18 18:54 Pulse Ox 100 12/21/18 18:54 Vital Signs Reviewed: Yes Eyes: Positive: Conjunctiva Clear ENT: Positive: Hearing grossly normal, Uvula midline. Negative: Nasal congestion, Nasal drainage, Tonsillar swelling, Tonsillar exudate, Trismus, Hoarse voice, Sinus tenderness Neck: Positive: Supple, Nontender, No Lymphadenopathy Respiratory: Positive: Lungs clear, Normal breath sounds, No respiratory distress, No accessory muscle use Cardiovascular: Positive: RRR, No Murmur Musculoskeletal: Positive: ROM Intact, No Edema Neurological: Positive: Alert, Other: - decreased sensation right cheek and nares Psychological Exam: Normal Skin Exam: Normal Throat Pain/Nasal Course/Dx - Differential Dx/Diagnosis Provider Diagnosis: Right facial numbness Discharge - Sign-Out/Discharge Documenting (check all that apply): Patient Departure All imaging exams completed and their final reports reviewed: No Studies - Discharge Plan Condition: Stable Disposition: HOME Referrals: Igor Lombardo MD [Primary Care Provider] - As Soon As Possible Additional Instructions: I am unsure of the cause of your right facial numbness If you develop a facial droop get seen FRANCIS If you develop a right facial rash get seen FRANCIS See your provider first available appt...this needs further investigation recheck for any new symptoms lab work pending including a test for Lyme disease - Billing Disposition and Condition Condition: STABLE Disposition: Home
[2018-12-22 13:13] LABS: ABS Eosinophils 0.2 10^3/ul (0-0.6); ABS Lymphocytes 2.5 10^3/ul (1.0-4.8); ABS Monocytes 0.6 10^3/ul (0-0.8); ABS Neutrophils 3.8 10^3/ul (1.5-7.7); Eosinophil % 3.2 %; Hematocrit 41 % (35-47); Hemoglobin 13.4 g/dL (12.0-16.0); Lymphocyte % 34.7 %; Mean Corpuscular HGB Conc 33 g/dL (31-36); Mean Corpuscular Hemoglobin 29 pg (27-31); Mean Corpuscular Volume 87 fL (80-97); Mean Platelet Volume 8.4 fL (7.4-10.4); Nucleated Red Blood Cells % 0.2; Platelet Count 335 10^3/uL (150-450); Red Blood Count 4.72 10^6 /uL (3.70-4.87); Red Cell Distribution Width 13 % (10-15); White Blood Count 7.1 10^3/uL (3.5-10.8)
[2018-12-22 13:24] LABS: Albumin 4.5 g/dL (3.2-5.2); Albumin/Globulin Ratio 1.6 (1-3); BUN/Creatinine Ratio 14.6 (8-20); Calcium 10.1 mg/dL (8.6-10.3); EGFR African American 81.9 (>60); EGFR Non-African American 67.7 (>60); Globulin 2.9 g/dL (2-4); Potassium 4.3 mmol/L (3.5-5.0); Total Bilirubin 0.6 mg/dL (0.2-1.0); Total Protein 7.4 g/dL (6.4-8.9)
== END 2018-12-21 20:35 | disposition home or self-care (01) ==
LOC: UCCORT 18:18
DX: R20.0 Anesthesia of skin (principal); Z86.69 Personal history of other diseases of the nervous system and sense organs
CPT/HCPCS: 36415; 80053; 85025; 86618; 87651; 99211; G0463